=== PATIENT | male | born 1945 | race Caucasian/White ===

== ENCOUNTER 2018-07-04 21:22 | Inpatient (IN) | payer OTHER ==
[~2018-07-04] VITALS: Ht 177.8 cm; Wt 110.2 kg
[~2018-07-04 21:22] MED LIST: ALL DAY PAIN R220 MG PO; ASPIRIN EC81 M1 PO; CRANBERRY400 M2 PO; FLOMAX0.4 M1 PO; FLUDROCORTISON0.1 M1 PO; GLUCOPHAGE500 M1 PO; JANUVIA100 M1 PO; LEVEMIR100 UNIT/1 SC; NOVOLOG100 UNIT/2 SC; TYLENOL325 M1 PO
--- NOTE | 2018-07-04 21:44 | ED GENERAL ADULT ---
History of Present Illness General Chief Complaint: Altered Mental Status Stated Complaint: BIBA AMS Source: patient, old records, EMS, police Exam Limitations: Patient refusing to answer Vital Signs & Intake/Output Vital Signs & Intake/Output Vital Signs Date Time Temp Pulse Resp B/P B/P Pulse O2 O2 Flow FiO2 Mean Ox Delivery Rate 07/05 0100 99 18 95 Nasal 2.0L Cannula 07/04 2345 100.6 07/04 2336 100.6 98 18 136/63 93 Room Air 07/04 2201 103.8 106 22 149/69 92 Room Air 07/04 2200 102.8 ED Intake and Output 07/05 0000 07/04 1200 Intake Total 3000 Output Total 200 Balance 2800 Intake, IV 3000 Output, Urine 200 Patient 240 lb Weight Weight Estimated Measurement Method Allergies Coded Allergies: No Known Allergies (06/25/16) Reconcile Medications Acetaminophen (Tylenol) 325 MG TABLET 1 TAB PO Q8 PRN PAIN Aspirin (Ecotrin*) 81 MG TABLET.DR 1 TAB PO DAILY HEART HEALTH (Reported) Fludrocortisone Acetate 0.1 MG TABLET 1 TAB PO DAILY DIZZINESS ON STANDING Insulin Detemir (Levemir) 100 UNIT/1 ML VIAL 14 UNITS SC AT BEDTIME DM Metformin Hydochloride (Glucophage) 500 MG TABLET 1 TAB PO 1/2H B/BREAKF/ DINNER DM Sitagliptin Phosphate (Januvia) 100 MG TABLET 1 TAB PO DAILY DM Tamsulosin HCl (Flomax) 0.4 MG CAP.ER.24H 1 TAB PO DAILY URINARY RETENTION Triage Nurses Notes Reviewed? yes HPI: The patient lives in an apartment alone. His neighbor should her crash and found him as he fallen out of bed and was unable to get up. Upon EMS arrival patient was refusing to go to the emergency department. His apartment was found very disheveled and it was very hot inside. Patient was adamantly refusing to go so police were notified and the patient was brought in on a police paper for evaluation. Patient is not answering any questions only to state that he is here under duress and he does not want to be here. Patient is noted to be moving all 4 extremities and is following commands however will not answer any questions. (Bandar COLBERT,Gabe vAila) Past History Medical History Any Pertinent Medical History? see below for history Neurological: NONE EENT: NONE Cardiovascular: hypertension Respiratory: NONE Gastrointestinal: NONE Hepatic: NONE Renal: benign prost hyperplasia, DYSURIA Musculoskeletal: chronic back pain Psychiatric: NONE Endocrine: diabetes Blood Disorders: NONE Cancer(s): NONE INTRANET SUPPORT/Reproductive: NONE History of MRSA: No History of VRE: No History of CDIFF: No Pneumonia Vaccine: 06/25/16 Surgical History Surgical History: "EAR OPERATION A KID" Psychosocial History Who do you live with Patient/Self Services at Home None What is your primary language Belarusian Tobacco Use: Refused to answer Family History Hx Contributory? No (Bandar COLBERT,Gabe Avila) Review of Systems Review of Systems Constitutional: Reports: see HPI. (Bandar COLBERT,Gabe Avila) Physical Exam Physical Exam General Appearance: no apparent distress, awake, moderate distress Head: atraumatic Eyes: Bilateral: PERRL, EOMI. Ears, Nose, Throat: normal pharynx, hearing grossly normal Neck: normal inspection, supple Respiratory: normal breath sounds, chest non-tender, no respiratory distress, lungs clear Cardiovascular: regular rate/rhythm, normal peripheral pulses Gastrointestinal: normal bowel sounds, soft, non-tender, no organomegaly Back: normal inspection, normal range of motion Extremities: normal inspection, normal capillary refill, normal range of motion, no edema, pelvis stable Neurologic/Psych: no motor/sensory deficits, awake Skin: patient very filthy and covered in dirt. His skin is very dry and peeling. Core Measures ACS in differential dx? No CVA/TIA Diagnosis: No Sepsis Present: No Sepsis Focused Exam Completed? No (Badnar COLBERT,Gabe Avila) ED Sepsis Exam Date of Focused Sepsis Exam: 07/04/18 Time of Focused Sepsis Exam: 2232 Sepsis Cardiac Exam: Regular Rate/Rhythm Sepsis Resp Exam: CTA Sepsis Cap Refill Exam: <2 Sec Sepsis Peripheral Pulse Exam: Normal Sepsis Peripheral Pulse Location: Radial Sepsis Skin Color Exam: Normal for Ethnicity Skin Temp/Moisture Exam: Warm/Dry (Bandar COLBERT,Gabe Avila) Progress Differential Diagnoses I considered the following diagnoses in my evaluation of the patient: [ Electrolyte abnormality, sepsis, CVA, rhabdo, UTI] Plan of Care: Orders Procedure Date/time Status Clear Liquid Diet 07/05 B Active Patient Data 07/05 106 Active Saline Lock 07/05 103 Active Misc Message 07/05 103 Active ED Holding Orders 07/05 103 Active Admit to inpatient 07/05 103 Active Vital Signs 07/05 103 Active Code Status 07/05 103 Active Straight Cath 07/04 2149 Active Add-on Test (ER Only) 07/04 2148 Active Telemetry/Varnisher Plasticoater 07/04 2144 Active CULTURE,URINE 07/04 2144 Active BLOOD CULTURE 07/04 2144 Active URINALYSIS 07/04 2144 Complete TROPONIN LEVEL 07/04 2144 Complete LACTIC ACID 07/04 2144 Complete COMPREHENSIVE METABOLIC PANEL 07/04 2144 Complete CREATINE PHOSPHOKINASE 07/04 2144 Complete CBC WITHOUT DIFFERENTIAL 07/04 2144 Complete EKG 07/04 2144 Active Laboratory Tests 07/05/18 0044: Lactic Acid Cancelled 07/04/18 2315: Urine Color YEL, Urine Clarity HAZY H, Urine pH 6.0, Ur Specific [place] 1.025, Urine Protein 100 H, Urine Ketones NEG, Urine Nitrite POS H, Urine Bilirubin NEG, Urine Urobilinogen 0.2, Ur Leukocyte Esterase SMALL H, Ur Microscopic SEDIMENT EXAMINED, Urine RBC FEW H, Urine WBC 10-15 H, Ur Epithelial Cells RARE, Urine Bacteria FEW H, Urine Hemoglobin LARGE H, Urine Glucose NEG 07/04/18 2243: Anion Gap 11, Estimated GFR 43 L, BUN/Creatinine Ratio 27.5 H, Glucose 220 H, Lactic Acid 1.6, Calcium 8.8, Total Bilirubin 0.7, AST 23, ALT 23, Alkaline Phosphatase 118, Creatine Kinase 277 H, Troponin I 0.08, Total Protein 7.1, Albumin 3.4 L, Globulin 3.7, Albumin/Globulin Ratio 0.9 L, CBC w Diff MAN DIFF ORDERED, RBC 4.23 L, MCV 82.5, MCH 27.8, MCHC 33.7, RDW 15.7 H, MPV 9.4, Gran % 95.3 H, Lymphocytes % 1.6 L, Monocytes % 2.9, Eosinophils % 0.2, Basophils % 0, Absolute Granulocytes 22.1 H, Segmented Neutrophils 82 H, Band Neutrophils 6 H, Absolute Lymphocytes 0.4 L, Lymphocytes 4 L, Monocytes 8, Absolute Monocytes 0.7 H, Absolute Eosinophils 0, Absolute Basophils 0, Platelet Estimate ADEQUATE, Normocytic RBCs VERIFIED, Normochromic RBCs VERIFIED, Anisocytosis 1+ Microbiology 07/043 BLOOD: Blood Culture - RECD 07/04 2315 URINE ROUT: Urine Culture - RECD 07/04 2310 BLOOD: Blood Culture - RECD Diagnostic Imaging: Viewed by Me: Radiology Read, CT Scan. Discussed w/RAD: Radiology Read, CT Scan. Initial ED EKG: PENDING Rhythm Strip: sinus tachycardia Hand-Off Endorsed To: Jamison Powell MD Endorsed Time: 2299 Pending: CT, labs, Xray (Bandar COLBERT,Gabe Avila) Radiology Impression: PATIENT: JOSHUA ARTEAGA JR PRESENT AGE: 73 PATIENT ACCOUNT NO: [id number] : 47 LOCATION: [facility] ORDERING PHYSICIAN: Gabe Portillo MD SERVICE DATE: 07/04/18 EXAM TYPE: CAT - CT CERV SPINE WO IV CONTRAST; CT HEAD WO IV CONTRAST EXAMINATION: CT HEAD WITHOUT CONTRAST CT CERVICAL SPINE WITHOUT CONTRAST CLINICAL INFORMATION: Trauma. COMPARISON: None. TECHNIQUE: Imaging was performed from the skull base to vertex without intravenous administration of contrast. In addition, helical noncontrast CT imaging was acquired through the cervical spine and source images were reviewed along with axial reconstructions and sagittal and coronal MPRs. DLP: 969.7 mGy-cm FINDINGS: HEAD: No intracranial mass, hemorrhage, or midline shift is visualized. There is atrophy with prominence of the ventricles and the sulci and hypodensity of the periventricular white matter due to chronic small vessel ischemic disease. There is vascular calcifications of the internal carotid arteries bilaterally. No extra-axial collections are identified. There is sinus mucosal opacity filling the right frontal sinus. The mastoid air cells are normally aerated. CERVICAL SPINE: There is no evidence of acute cervical spine fracture. Vertebral bodies remain normal in height. Cervical vertebrae have normal alignment. There is multilevel degenerative spondylosis of the cervical spine with disc height narrowing and endplate spurs and facet joint arthrosis No pre- or paravertebral soft tissue abnormality is identified. Limited assessment of the lung apices is unremarkable. IMPRESSION: 1. No acute intracranial pathology. 2. No CT evidence of acute cervical spine fracture or traumatic subluxation DICTATED BY: Edgardo Sams MD DATE/TIME DICTATED:07/04/182240 INDIGO MIXER:DESIREE DATE/TIME TRANSCRIBED:07/04/182240 CONFIDENTIAL, DO NOT COPY WITHOUT APPROPRIATE AUTHORIZATION. <Electronically signed in Other Vendor System> SIGNED BY: Edgardo Sams MD 07/04/18 CXR Impression: PATIENT: JOSHUA ARTEAGA JR PRESENT AGE: 73 PATIENT ACCOUNT NO: [id number] : 47 LOCATION: [facility] ORDERING PHYSICIAN: Gabe Portillo MD SERVICE DATE: 07/04/18 EXAM TYPE: RAD - XRY- PORTABLE CHEST XRAY EXAMINATION: XR PORTABLE CHEST CLINICAL INFORMATION: Fever. COMPARISON: Chest x-ray 06/25/2016 TECHNIQUE: Portable frontal view of the chest was obtained. 10:17 PM FINDINGS: The left costophrenic angle is excluded from the image. Lung volume is low. This causes accentuation of the bronchovascular markings. Allowing for the low inspiratory effort there is no significant pulmonary vascular congestion. The lungs are clear. There is no focal consolidation. There is degenerative spurring of the inferior humeral head and glenoid of the right shoulder. There is degenerative spondylosis of the spine with multilevel endplate spurring of the vertebrae. IMPRESSION: No acute abnormality. DICTATED BY: Edgardo Sams MD DATE/TIME DICTATED:07/04/182302 INDIGO MIXER:DESIREE DATE/TIME TRANSCRIBED:07/04/182302 CONFIDENTIAL, DO NOT COPY WITHOUT APPROPRIATE AUTHORIZATION. <Electronically signed in Other Vendor System> SIGNED BY: Edgardo Sams MD 07/04/182307 (Carlos COLBERT,Jamison Almanza) Departure Departure Disposition: STILL A PATIENT Condition: Stable Referrals: Patient Has No Primary Care Dr (PCP/Family) Departure Forms: Customer Survey General Discharge Information (Bandar COLBERT,Gabe Avila) Departure Clinical Impression Primary Impression: Fever Secondary Impressions: Acute renal failure, Sepsis, UTI (urinary tract infection ) Comments pt signed out to me, dr. powell, 07/04/18, 11pm Admission Note Spoke With: Pacheco Almaguer MD Documentation of Exam: Documentation of any treatments & extenuating circumstances including Concerns Regarding Discharge (functional status, medication knowledge or non-compliance, living conditions, etc.) that warrant an admission rather than observation: pt with sepsis of urologic origin, with acute renal failure, likely of pre-renal etiology. pt merits iv fluids, iv abx, supportive care. (Carols COLBERT,Jamison Almanza) Critical Care Note Critical Care Note Critical Care Time: non-applicable (Bandar COLBERT,Gabe Avila)
--- NOTE | 2018-07-04 22:49 | CT SCAN REPORT ---
EXAMINATION: CT HEAD WITHOUT CONTRAST CT CERVICAL SPINE WITHOUT CONTRAST CLINICAL INFORMATION: Trauma. COMPARISON: None. TECHNIQUE: Imaging was performed from the skull base to vertex without intravenous administration of contrast. In addition, helical noncontrast CT imaging was acquired through the cervical spine and source images were reviewed along with axial reconstructions and sagittal and coronal MPRs. DLP: 969.7 mGy-cm FINDINGS: HEAD: No intracranial mass, hemorrhage, or midline shift is visualized. There is atrophy with prominence of the ventricles and the sulci and hypodensity of the periventricular white matter due to chronic small vessel ischemic disease. There is vascular calcifications of the internal carotid arteries bilaterally. No extra-axial collections are identified. There is sinus mucosal opacity filling the right frontal sinus. The mastoid air cells are normally aerated. CERVICAL SPINE: There is no evidence of acute cervical spine fracture. Vertebral bodies remain normal in height. Cervical vertebrae have normal alignment. There is multilevel degenerative spondylosis of the cervical spine with disc height narrowing and endplate spurs and facet joint arthrosis No pre- or paravertebral soft tissue abnormality is identified. Limited assessment of the lung apices is unremarkable. IMPRESSION: 1. No acute intracranial pathology. 2. No CT evidence of acute cervical spine fracture or traumatic subluxation
[2018-07-04 22:57] LABS: ABSOLUTE BASOPHIL COUNT 0 /CUMM (0.0-0.2); ABSOLUTE EOSINOPHIL COUNT 0 /CUMM (0.0-0.7); ABSOLUTE GRANULOCYTE CT 22.1 /CUMM (1.4-6.5); ABSOLUTE LYMPH COUNT 0.4 /CUMM (1.2-3.4); ABSOLUTE MONOCYTE COUNT 0.7 /CUMM (0.10-0.60); BASOPHIL % 0 % (0.0-2.0); EOSINOPHIL % 0.2 % (0-5); GRANULOCYTE % 95.3 % (42.2-75.2); HEMATOCRIT 34.9 % (42-52); MEAN CORPUSCULAR HGB 27.8 PG (27.0-31.0); MEAN CORPUSCULAR HGB CONC 33.7 G/DL (33.0-37.0); MEAN CORPUSCULAR VOLUME 82.5 FL (80.0-94.0); MEAN PLATELET VOLUME 9.4 FL (7.4-10.4); PLATELET COUNT 238 /CUMM (130-400); RBC DISTRIBUTION WIDTH 15.7 % (11.5-14.5); RED BLOOD CELL CT 4.23 /CUMM (4.70-6.10); WHITE BLOOD CELL COUNT 23.2 /CUMM (4.8-10.8)
--- NOTE | 2018-07-04 23:08 | RADIOLOGY REPORT ---
EXAMINATION: XR PORTABLE CHEST CLINICAL INFORMATION: Fever. COMPARISON: Chest x-ray 06/25/2016 TECHNIQUE: Portable frontal view of the chest was obtained. 10:17 PM FINDINGS: The left costophrenic angle is excluded from the image. Lung volume is low. This causes accentuation of the bronchovascular markings. Allowing for the low inspiratory effort there is no significant pulmonary vascular congestion. The lungs are clear. There is no focal consolidation. There is degenerative spurring of the inferior humeral head and glenoid of the right shoulder. There is degenerative spondylosis of the spine with multilevel endplate spurring of the vertebrae. IMPRESSION: No acute abnormality.
--- NOTE | 2018-07-05 01:21 | History & Physical ---
Yohana Villagomez 07/05/18 0120: General Information and HPI MD Statement: I have seen and personally examined JOSHUA ARTEAGA Michael CARVAJAL and documented this H&P. The patient is a 73 year old M who presented with a patient stated chief complaint of []. Source of Information: patient, EMS, police Exam Limitations: no limitations, irritable History of Present Illness: Patient is a 73-year-old male with a past medical history significant for diabetes mellitus type 2, BPH, insomnia, was brought in by ambulance to the ER for evaluation of altered mental status and a fall. Patient reports doing well as per his baseline functional status until yesterday when he felt very tired all day. Also reports chills and shivers and an episode of vomiting in the morning. he was asleep most of the day. He woke up this evening when he felt no strength at all and felt very weak. He tried to get up from the bed and does not remember anything after that. His neighbor reports that he heard a loud tired and presumed that the patient had fallen. He called the 911 and the patient was brought to the emergency department. The patient did not want to stay in the ED and said that he was fine and wanted to go home. Patient also reports increased urinary frequency for the past 1 month. He denies use of any of his medications. He denies dysuria, hematuria, fever, chills, chest pain, shortness of breath, abdominal pain, nausea, headaches, myalgias, arthralgias. Allergies/Medications Allergies: Coded Allergies: No Known Allergies (06/25/16) Home Med list Acetaminophen (Tylenol) 325 MG TABLET 1 TAB PO Q8 PRN PAIN Aspirin (Ecotrin*) 81 MG TABLET.DR 1 TAB PO DAILY HEART HEALTH (Reported) Fludrocortisone Acetate 0.1 MG TABLET 1 TAB PO DAILY DIZZINESS ON STANDING Insulin Detemir (Levemir) 100 UNIT/1 ML VIAL 14 UNITS SC AT BEDTIME DM Metformin Hydochloride (Glucophage) 500 MG TABLET 1 TAB PO 1/2H B/BREAKF/ DINNER DM Sitagliptin Phosphate (Januvia) 100 MG TABLET 1 TAB PO DAILY DM Tamsulosin HCl (Flomax) 0.4 MG CAP.ER.24H 1 TAB PO DAILY URINARY RETENTION Past History Travel History Traveled to [place] past 21 day No Medical History Neurological: NONE EENT: NONE Cardiovascular: hypertension Respiratory: NONE Gastrointestinal: NONE Hepatic: NONE Renal: benign prost hyperplasia, DYSURIA Musculoskeletal: chronic back pain Psychiatric: NONE Endocrine: diabetes Blood Disorders: NONE Cancer(s): NONE 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 Home Who Do You Live With? self Services at Home: None ETOH Use: denies use Illicit Drug Use: denies illicit drug use Functional Ability ADLs Independent: dressing, eating, toileting, bathing. Review of Systems Review of Systems Constitutional: Reports: see HPI. EENTM: Reports: no symptoms. Cardiovascular: Reports: no symptoms. Respiratory: Reports: no symptoms. GI: Reports: see HPI. Genitourinary: Reports: see HPI. Musculoskeletal: Reports: no symptoms. Skin: Reports: no symptoms. Neurological/Psychological: Reports: no symptoms. Hematologic/Endocrine: Reports: no symptoms. Immunologic/Allergic: Reports: no symptoms. All Other Systems: Reviewed and Negative Exam & Diagnostic Data Last 24 Hrs of Vital Signs/I&O Vital Signs Date Time Temp Pulse Resp B/P B/P Pulse O2 O2 Flow FiO2 Mean Ox Delivery Rate 07/05 0315 97.9 84 20 152/70 99 Nasal 2.0L Cannula 07/05 0132 94 20 149/67 98 Nasal 2.0L Cannula 07/05 0100 99 18 95 Nasal 2.0L Cannula 07/04 2345 100.6 07/04 2336 100.6 98 18 136/63 93 Room Air 07/04 2201 103.8 106 22 149/69 92 Room Air 07/04 2200 102.8 Intake & Output 07/05 0800 07/05 0000 07/04 1600 Intake Total 2300 3000 Output Total 200 Balance 2300 2800 Intake, IV 2300 3000 Output, Urine 200 Patient 240 lb Weight Weight Estimated Measurement Method Physical Exam General Appearance Alert, Oriented X3, No Acute Distress Skin No Rashes, No Breakdown, No Significant Lesion, scratch li all over the body Skin Temp/Moisture Exam: Cool/Dry Sepsis Skin Exam (color): Normal for Ethnicity HEENT Atraumatic, Mucous Membr. moist/pink Neck Supple, No JVD, No thryomegaly, +2 Carotid Pulse wo Bruit Cardiovascular Regular Rate, Normal S1, Normal S2, No Murmurs Lungs Clear to Auscultation, Normal Air Movement Abdomen Normal Bowel Sounds, Soft, No Tenderness, No Hepatospenomegaly, No Masses Neurological Normal Speech, Strength at 5/5 X4 Ext, Normal Tone, Sensation Intact, Cranial Nerves 3-12 NL Extremities b/l pedal edema Vascular Normal Pulses, Pulses Symmetrical Assessment/Plan Assessment: Patient is a 73-year-old male with a past medical history significant for diabetes mellitus type 2, BPH, insomnia, was brought in by ambulance to the ER for evaluation of a altered mental status & fall. Vitals on admission:T-max 103.8, tachycardia 106, respiratory 22, blood pressure 149/96, saturating at 95 on 2 L Pertinent labs:WBC 23 with bandemia 6, hemoglobin 11 and hematocrit 34, platelets 238 Sodium 135, potassium 4, BUN 44 and creatinine 1.6, Blood sugar 220, CK 227, Lactic acid 1.6 Chest x-ray: no acute cardiopulmonary findings Head CT:1. No acute intracranial pathology. 2. No CT evidence of acute cervical spine fracture or traumatic subluxation Problems: 1.sepsis of urological origin 2.acute kidney injury 3.Elevated creatine kinase 4.Generalized weakness 5.diabetes mellitus type 2 6.BPH Assessment and plan: 1.sepsis of urological origin Patient presented to us with weakness, tiredness, altered mental status leading to a fall. His vitals were a T-max of 103.8 and tachycardia. Leukocytosis and bandemia. His urine showed WBC, esterase, nitrates, bacteria. He fulfills SIRS criteria for sepsis. -Continue IV hydration -Check vitals every shift -Monitor fever -Continue IV ceftriaxone -Follow up with blood cultures 2 and urine cultures -Maintain oxygen saturation above 94% 2.acute kidney injury: Likely due to dehydration and infection. His creatinine today was 1.6. Previously was 0.8. -Continue IV hydration -Monitor serum creatinine levels -Avoid nephrotoxic drugs including NSAIDs 3.Elevated creatine kinase -Creatine kinase level was 227 -Continue gentle hydration which will help with the creatinine kinase level 4.Generalized weakness -Follow up with thyroid function tests, vitamin D, vitamin B12, folate, iron studies -Obtain PT consult 5.diabetes mellitus type 2 -Continue Accu-Cheks -Levemir 14 units at bedtime -NovoLog sliding scale 6.BPH -Continue Flomax -DVT prophylaxis:subcu heparin 5000 units -Diet: Regular diet -CODE STATUS: Full code As Ranked By This Provider Problem List: 1. UTI (urinary tract infection) 2. Diabetes mellitus type 2 in obese 3. Sepsis 4. Acute renal failure Core Measures/Misc (07/24) Acute Coronary Syndrome ACS Diagnosis: No Congestive Heart Failure Congestive Heart Failure Diagnosis No Cerebrovascular Accident CVA/TIA Diagnosis: No VTE (View Protocol) VTE Risk Factors Age>40 No Mechanical VTE Prophylaxis d/t N/A MechProphylax Ordered No VTE Pharm Prophylaxis d/t NA PharmProphylax ordered Sepsis (View protocol) Sepsis Present: Yes If YES complete Sepsis Event Note If YES complete Sepsis Event Note Pacheco Almaguer MD 07/05/18 0135: Core Measures/Misc (07/24) Sepsis (View protocol) If YES complete Sepsis Event Note If YES complete Sepsis Event Note Attending MD Review Statement Attending Statement Attending MD Statement: examined this patient, discuss w/resident/PA/BOILER TESTING TECHNICIAN, agreed w/resident/PA/BOILER TESTING TECHNICIAN, reviewed EMR data (avail) Attending Assessment/Plan: 73M PMH T2DM was found by neighbors down in his house, brought in by EMS after patient was unable to walk or move. He was responsive and alert, but became more lethargic and weak, and was stuck between the bed and the wall, unable to get out. He refused to come to ER and was papered. Patient refuses to talk to me or answer any questions at this time. He appears diaphoretic and severely dehydrated. He is moving all limbs independently and has a normal neurological exam. Tmax 103.8, WBC 23, creatinine 1.3, CPK normal. UA suggestive of possible UTI. Unclear if labs are a result of sepsis or hyperthermia, however will cover for urological infection. Plan: IV hydration, Ceftriaxone, cultures, trend renal function, psych and social work, PT eval. Sam Maldonado 07/05/18 0252: Core Measures/Misc (07/24) Sepsis (View protocol) If YES complete Sepsis Event Note If YES complete Sepsis Event Note Resident Review Statement Resident Statement: examined this patient, discussed with internal combustion engineer, agreed with internal combustion engineer, discussed with family, reviewed EMR data (avail), discussed with nursing , discussed with case mgmt, reviewed images, amended to note Other Findings: This is a 73-year-old male with past medical history significant for type 2 diabetes mellitus, BPH, orthostatic hypotension, chronic back pain, was brought in via EMS to the emergency room with chief complaint of altered mental status. Patient was found by neighbors down in his house, EMS was called. Patient was unable to walk or move by the time EMS reached. He is alert, awake however lethargic and weak and he was stuck between bed and the wall, unable to get out. He refused to come to the emergency room. Later POLICE was called and he was brought into the emergency room. He reports that he has been having extreme weakness for last 2 days. He has been living alone at his home. Denies alcohol abuse, smoking, illicit drug abuse. He offers no complaints. He reports that he has BPH, he urinates almost 20 times a day. But however he stopped taking all his medications recently. He has known history of diabetes, used to follow-up with Dr. Bernard however he stopped taking Levemir and insulin at home. On review of systems he denied any nausea, vomiting, abdominal pain, change in bowel habits. Denied any constipation, diarrhea. Reports increased urinary frequency. Denies any dysuria, urgency, lower abdominal pain. He denied any chest pain, palpitations, short of breath, cough. He was last admitted to [facility], found to have orthostatic hypotension, discharged on Florinef Vitals T-max 103.8, tachycardia 106, respiratory 22, blood pressure 149/96, saturating at 95 on 2 L Labs WBC 23 with bandemia 6, hemoglobin 11 and hematocrit 34, platelets 238 Sodium 135, potassium 4, BUN 44 and creatinine 1.6 Blood sugar 220 CK 227 Lactic acid 1.6 Chest x-ray no acute cardiopulmonary findings Head CT 1. No acute intracranial pathology. 2. No CT evidence of acute cervical spine fracture or traumatic subluxation - 1. Sepsis secondary to UTI Patient presented with lethargy, weakness. He was found to have T-max 103.8, tachycardia, leukocytosis and bandemia. Urinalysis showed nitrates, esterase, bacteria, WBC. He will be admitted to [facility] for sepsis secondary to UTI versus hyperthermia. * Admit to [facility] * Monitor vitals every shift * Maintain oxygen saturations greater than 90 * Monitor for fever, leukocytosis * Follow-up blood cultures 2 * Follow-up urine cultures * Continue IV ceftriaxone * Continue IV fluids Acute kidney injury Creatinine 1.6 at the time of admission. His baseline creatinine was 0.8 most likely secondary to dehydration and hyperthermia * Adequate hydration * Recheck creatinine in the a.m. * Avoid nephrotoxic agents Diabetes mellitus Patient has chronic history of type 2 diabetes mellitus. He is supposed to take Levemir and oral hypoglycemic agents. However he stopped taking all his medications. He stopped following up Dr. Anand. * Accu-Cheks * Levemir 14 units at bedtime * NovoLog sliding scale Mild elevation of creatinine kinase * Provide gentle hydration Generalized weakness * PT consult * Follow-up thyroid function tests * Follow-up vitamin D * Follow-up B12 and folate * Follow-up iron studies Orthostatic hypotension continue Florinef 0.1 mg daily BPH continue Flomax 0.4 mg daily DVT prophylaxis subcu heparin Regular diet Full code Pain pathway ordered
[2018-07-05 08:00] VITALS: BP 152/67
[2018-07-05 08:22] LABS: ABSOLUTE BASOPHIL COUNT 0 /CUMM (0.0-0.2); ABSOLUTE EOSINOPHIL COUNT 0 /CUMM (0.0-0.7); ABSOLUTE GRANULOCYTE CT 19.4 /CUMM (1.4-6.5); ABSOLUTE LYMPH COUNT 0.5 /CUMM (1.2-3.4); BASOPHIL % 0.1 % (0.0-2.0); EOSINOPHIL % 0.1 % (0-5); HEMATOCRIT 32.4 % (42-52); MEAN CORPUSCULAR HGB CONC 34.3 G/DL (33.0-37.0); MEAN CORPUSCULAR VOLUME 81.4 FL (80.0-94.0); MEAN PLATELET VOLUME 9.7 FL (7.4-10.4); PLATELET COUNT 204 /CUMM (130-400); RBC DISTRIBUTION WIDTH 15.5 % (11.5-14.5); RED BLOOD CELL CT 3.98 /CUMM (4.70-6.10)
[2018-07-05 09:02] LABS: GRANULOCYTE % 92.6 % (42.2-75.2)
--- NOTE | 2018-07-05 11:23 | PN- Att Addend ---
Attending Addendum Attending Brief Note Laboratory Tests 07/05/18 0642: Anion Gap 7, Estimated GFR 46 L, BUN/Creatinine Ratio 24.0, Hemoglobin A1c Pending, Creatine Kinase 977 H, Troponin I 1.08 *H, CBC w Diff NO MAN DIFF REQ, RBC 3.98 L, MCV 81.4, MCH 28.0, MCHC 34.3, RDW 15.5 H, MPV 9.7, Gran % 92.6 H , Lymphocytes % 2.5 L, Monocytes % 4.7, Eosinophils % 0.1, Basophils % 0.1, Absolute Granulocytes 19.4 H, Absolute Lymphocytes 0.5 L, Absolute Monocytes 1.0 H, Absolute Eosinophils 0, Absolute Basophils 0 07/05/18 0044: Lactic Acid Cancelled 07/04/18 2315: Urine Color YEL, Urine Clarity HAZY H, Urine pH 6.0, Ur Specific [place] 1.025, Urine Protein 100 H, Urine Ketones NEG, Urine Nitrite POS H, Urine Bilirubin NEG, Urine Urobilinogen 0.2, Ur Leukocyte Esterase SMALL H, Ur Microscopic SEDIMENT EXAMINED, Urine RBC FEW H, Urine WBC 10-15 H, Ur Epithelial Cells RARE, Urine Bacteria FEW H, Urine Hemoglobin LARGE H, Urine Glucose NEG 07/04/18 2243: Anion Gap 11, Estimated GFR 43 L, BUN/Creatinine Ratio 27.5 H, Glucose 220 H, Lactic Acid 1.6, Calcium 8.8, Iron 28 L, TIBC 265, Ferritin 95.6, Total Bilirubin 0.7, AST 23, ALT 23, Alkaline Phosphatase 118, Creatine Kinase 277 H, Troponin I 0.08, Total Protein 7.1, Albumin 3.4 L, Globulin 3.7, Albumin/ Globulin Ratio 0.9 L, Vitamin B12 306, 25-OH Vitamin D Total 9.1 L, Folate 4.2 , TSH 3.830, Thyroxine (T4) 6.5, CBC w Diff MAN DIFF ORDERED, RBC 4.23 L, MCV 82.5, MCH 27.8, MCHC 33.7, RDW 15.7 H, MPV 9.4, Gran % 95.3 H, Lymphocytes % 1.6 L, Monocytes % 2.9, Eosinophils % 0.2, Basophils % 0, Absolute Granulocytes 22.1 H, Segmented Neutrophils 82 H, Band Neutrophils 6 H, Absolute Lymphocytes 0.4 L, Lymphocytes 4 L, Monocytes 8, Absolute Monocytes 0.7 H, Absolute Eosinophils 0, Absolute Basophils 0, Platelet Estimate ADEQUATE, Normocytic RBCs VERIFIED, Normochromic RBCs VERIFIED, Anisocytosis 1+ Vital Signs Date Time Temp Pulse Resp B/P B/P Pulse O2 O2 Flow FiO2 Mean Ox Delivery Rate 07/05 1039 95 Room Air 07/05 0820 98.5 82 18 151/67 95 Room Air 07/05 0800 98.5 82 18 152/67 95 Room Air 07/05 0630 98.8 76 18 168/74 96 07/05 0315 97.9 84 20 152/70 99 Nasal 2.0L Cannula 07/05 0132 94 20 149/67 98 Nasal 2.0L Cannula 07/05 0100 99 18 95 Nasal 2.0L Cannula 07/04 2345 100.6 07/04 2336 100.6 98 18 136/63 93 Room Air 07/04 2201 103.8 106 22 149/69 92 Room Air 07/04 2200 102.8 73 yr old male who lives by himself and being admitted with sepsis secondary to UTI and also has postiive troponins. Talking to pt - he has not been taking any meds and has not seen a doctor for some time. He said he was told about some vascular problem in his legs about 2 years but given that he does not have insurance he did not pursue any treatment. Pt denies any smoking or alcohol history. he does have h/o DM and other medical problems like BPH but is not taking any meds. At one point of time he had issues with orthostatic hypotension and was put on florinef. Sepsis secondary to UTI- will cont to monitor his wbc and f;u on urine and blood cultures. pt doing ok for now and will cont with current abx- ceftriaxone. Positive troponins- pts second troponin came back positive at around 1, reviewed his EKG- shows LVH with repolarization abnormalities which is new compared to his previous ekg we have in our system. Likely Type 2 NM secondary to sepsis . Could have underlying CAD given his h/o DM and HTN and noncompliance with meds and given h/o vascular disease. YANET- cont with hydraion and recheck his BEP in am. d/w case planner in ER and pt apprantely is not maintaining his apartment and it was in bad condition per EMS and [facility]. d/w pt and family at bedside the care plan.
--- NOTE | 2018-07-05 15:50 | ULTRASOUND REPORT ---
EXAMINATION: US RETROPERITONEAL COMPLETE (RENAL) CLINICAL INFORMATION: UTI, urinary retention. Constantly feels the need to void but never able to fully empty. COMPARISON: CT abdomen and pelvis 06/25/2016. TECHNIQUE: Real-time imaging of the kidneys and bladder. FINDINGS: Limited evaluation due to patient's body habitus, bowel gas and patient compliance with the examination. RIGHT KIDNEY: 11.4 x 6.4 x 4.5 cm (SAG x AP x TRV). The kidney is normal in size, contour, and echogenicity. Renal cortical thickness is normal. No calculi or focal parenchymal lesions. No hydronephrosis. LEFT KIDNEY: 11.8 x 4.5 x 5.0 cm (SAG x AP x TRV). The kidney is normal in size, contour, and echogenicity. Renal cortical thickness is normal. No calculi or focal parenchymal lesions. No hydronephrosis. BLADDER: Well distended and normal. Right ureteral jet is demonstrated; left is not. The patient attempted to void just prior to the exam. Postvoid bladder volume is 660 mL. The prostate measures 4.8 x 4.2 x 4.6 cm. IMPRESSION: 1. Significant postvoid residual of 660 mL. 2. Unremarkable sonographic appearance of the kidneys.
--- NOTE | 2018-07-05 16:28 | Cons- Cardiology ---
General Information and HPI Consulting Request Date of Consult: 07/05/18 Requested By: Jammie Carrera MD History of Present Illness: The patient is a 73-year-old male with history of type 2 diabetes mellitus and BPH who is brought to the emergency department after being found on the floor of his home. The patient complained of significant fatigue and inability to get out of bed. He also complained of chills and episode of vomiting. His neighbor heard. He was found on the floor of his home lethargic and confused. He does not know how he came to be on the floor or how long he was on the floor. He has been noncompliant with his medications because he states that the medications do not make him feel better. He reports that he has had absolutely no chest discomfort. He denies any history of pain, tightness, or heaviness in the chest. He notes occasional mild shortness of breath, however he denies having that recently. He was noted to have a high fever on presentation, and was diagnosed with urinary tract infection. His troponin level increased from 0.08 on presentation to 1.08, and then to 6.02. He denies any history of heart disease, however he reports that he was told by Dr. Anand that he has vascular disease. When assessed by EMS, he refused to go to the emergency department and was brought in voluntarily. He states that he is willing to take medications in the hospital, however he does not plan to take any medications when he is discharged from the hospital. He states that he does not want any surgery or invasive procedures. Ceftriaxone has been initiated for urinary tract infection. Allergies/Medications Allergies: Coded Allergies: No Known Allergies (06/25/16) Home Med List: Acetaminophen (Tylenol) 325 MG TABLET 1 TAB PO Q8 PRN PAIN Aspirin (Ecotrin*) 81 MG TABLET.DR 1 TAB PO DAILY HEART HEALTH (Reported) Fludrocortisone Acetate 0.1 MG TABLET 1 TAB PO DAILY DIZZINESS ON STANDING Insulin Detemir (Levemir) 100 UNIT/1 ML VIAL 14 UNITS SC AT BEDTIME DM Metformin Hydochloride (Glucophage) 500 MG TABLET 1 TAB PO 1/2H B/BREAKF/ DINNER DM Sitagliptin Phosphate (Januvia) 100 MG TABLET 1 TAB PO DAILY DM Tamsulosin HCl (Flomax) 0.4 MG CAP.ER.24H 1 TAB PO DAILY URINARY RETENTION Current Medications: Current Medications Sig/Chuyita Start time Last Medication Dose Route Stop Time Status Admin Acetaminophen 650 MG Q6P PRN 07/05 0200 AC PO Acetaminophen 1,000 MG Q6P PRN 07/05 0200 AC IV Acetaminophen 0 .STK-MED ONE 07/04 2153 DC IV Acetaminophen 1,000 MG ONCE ONE 07/04 2145 DC 07/04 N/A 1 UNIT IV 07/04 215 2200 Aspirin Buffered 81 MG DAILY 07/05 0900 AC 07/05 PO 0946 Atorvastatin Calcium 40 MG 1700 07/05 1700 AC PO Ceftriaxone Sodium 1,000 MG Q24H 07/06 0100 AC IV Ceftriaxone Sodium 1,000 MG DAILY 07/05 09 CAN IV Ceftriaxone Sodium 0 .STK-MED ONE 07/05 0059 DC .ROUTE Ceftriaxone Sodium 1,000 MG ONCE ONE 07/05 0045 DC 07/05 IV 07/05 0046 0109 Cholecalciferol 6,000 IU DAILY 07/05 09 AC PO Ergocalciferol 50,000 IU ONCE A WEEK 07/05 1600 AC PO Fludrocortisone 100 MCG DAILY 07/05 09 DC 07/05 Acetate PO 0946 Heparin Sodium 5,000 UNIT Q8 07/05 0600 AC 07/05 (Porcine) SC 1359 Heparin Sodium 0 .STK-MED ONE 07/05 0400 DC (Porcine) .ROUTE Insulin Aspart 0 TIDAC 07/05 0200 AC 07/05 SC 08 Insulin Detemir 14 UNITS AT BEDTIME 07/05 2100 AC SC Sodium Chloride 1,000 ML Q13H 07/05 0200 AC 07/05 IV 07/06 0359 1431 Sodium Chloride 3,265.86 ML ONCE ONE 07/04 2145 DC 07/04 IV 07/04 214 2342 Tamsulosin HCl 0.4 MG DAILY 07/05 0900 AC 07/05 PO 0946 Review of Systems Review of Systems: No rash. No tremor. No melena. No orthopnea. All other systems were reviewed , and were noted to be negative. Past History Travel History Traveled to [place] past 21 day No Medical History Neurological: NONE EENT: NONE Cardiovascular: hypertension Respiratory: NONE Gastrointestinal: NONE Hepatic: NONE Renal: benign prost hyperplasia, DYSURIA Musculoskeletal: chronic back pain Psychiatric: NONE Endocrine: diabetes Blood Disorders: NONE Cancer(s): NONE [employer]IVER/Reproductive: NONE Surgical History Surgical History: "EAR OPERATION A KID" Family History Family History Reviewed? The patient denies any history of heart disease in his family. Psychosocial History Where Do You Live? Home Who Do You Live With? self Services at Home: None Smoking Status: Never Smoked ETOH Use: denies use Illicit Drug Use: denies illicit drug use Functional Ability ADLs Independent: dressing, eating, toileting, bathing. Exam & Diagnostic Data Vital Signs and I&O Vital Signs Date Time Temp Pulse Resp B/P B/P Pulse O2 O2 Flow FiO2 Mean Ox Delivery Rate 07/05 1039 95 Room Air 07/05 0820 98.5 82 18 151/67 95 Room Air 07/05 0800 98.5 82 18 152/67 95 Room Air 07/05 0630 98.8 76 18 168/74 96 07/05 0315 97.9 84 20 152/70 99 Nasal 2.0L Cannula 07/05 0132 94 20 149/67 98 Nasal 2.0L Cannula 07/05 0100 99 18 95 Nasal 2.0L Cannula 07/04 2345 100.6 07/04 2336 100.6 98 18 136/63 93 Room Air 07/04 2201 103.8 106 22 149/69 92 Room Air 07/04 2200 102.8 Intake & Output 07/05 1600 07/05 0800 07/05 0000 07/04 1600 07/04 0800 07/04 0000 Intake Total 560 2300 3000 Output Total 100 300 200 Balance 460 2000 2800 Intake, IV 500 2300 3000 Intake, Oral 60 Output, Urine 100 300 200 Patient 240 lb 240 lb Weight Weight Estimated Measurement Method Physical Exam: Gen: The patient is in no acute distress HEENT: Normal nose, ears, and oropharynx. Pupils equal bilaterally. Conjunctiva normal. Neck: Supple with no JVD, no masses, and no thyromegaly Lungs: Clear to auscultation with normal respiratory effort Heart: RRR, S1, S2, 2/6 systolic murmur. 1+ peripheral edema, 1+ pulses in the lower extremities bilaterally Abdomen: Soft, nontender, no masses. No hepatomegaly. No splenomegaly Extremities: No clubbing or cyanosis. Normal muscle strength in the upper and lower extremities Skin: Normal skin turgor with no skin ulcers or lesions noted. Neuro: Cranial nerves intact. Sensation intact Psych: Alert and oriented x 3 with appropriate affect Labs/Bryan Results: Laboratory Tests 07/05 07/05 07/05 1451 0642 0044 Chemistry Sodium (137 - 145 mmol/L) 138 Potassium (3.5 - 5.1 mmol/L) 4.1 Chloride (98 - 107 mmol/L) 110 H Carbon Dioxide (22 - 30 mmol/L) 21 L Anion Gap (5 - 16) 7 BUN (9 - 20 mg/dL) 36 H Creatinine (0.7 - 1.2 mg/dL) 1.5 H Estimated GFR (>60 ml/min) 46 L BUN/Creatinine Ratio (7 - 25 %) 24.0 Hemoglobin A1c (4.2 - 5.8 %) 7.8 H Lactic Acid Cancelled Creatine Kinase (55 - 170 U/L) 977 H Troponin I (<0.11 ng/ml) 6.02 *H 1.08 *H Triglycerides (<150 mg/dL) 108 Cholesterol (< 200 MG/DL) 161 LDL Cholesterol, Calc (65 - 129 mg/dL) 107 HDL Cholesterol (40 - 60 mg/dL) 33 L Cholesterol/HDL Ratio (0.00 - 4.88 %) 5 H Hematology CBC w Diff NO MAN DIFF REQ WBC (4.8 - 10.8 /CUMM) 21.0 H RBC (4.70 - 6.10 /CUMM) 3.98 L Hgb (14.0 - 18.0 G/DL) 11.1 L Hct (42 - 52 %) 32.4 L MCV (80.0 - 94.0 FL) 81.4 MCH (27.0 - 31.0 PG) 28.0 MCHC (33.0 - 37.0 G/DL) 34.3 RDW (11.5 - 14.5 %) 15.5 H Plt Count (130 - 400 /CUMM) 204 MPV (7.4 - 10.4 FL) 9.7 Gran % (42.2 - 75.2 %) 92.6 H Lymphocytes % (20.5 - 51.1 %) 2.5 L Monocytes % (1.7 - 9.3 %) 4.7 Eosinophils % (0 - 5 %) 0.1 Basophils % (0.0 - 2.0 %) 0.1 Absolute Granulocytes (1.4 - 6.5 /CUMM) 19.4 H Absolute Lymphocytes (1.2 - 3.4 /CUMM) 0.5 L Absolute Monocytes (0.10 - 0.60 /CUMM) 1.0 H Absolute Eosinophils (0.0 - 0.7 /CUMM) 0 Absolute Basophils (0.0 - 0.2 /CUMM) 0 07/04 07/04 5329 4273 Chemistry Sodium (137 - 145 mmol/L) 135 L Potassium (3.5 - 5.1 mmol/L) 4.0 Chloride (98 - 107 mmol/L) 107 Carbon Dioxide (22 - 30 mmol/L) 17 L Anion Gap (5 - 16) 11 BUN (9 - 20 mg/dL) 44 H Creatinine (0.7 - 1.2 mg/dL) 1.6 H Estimated GFR (>60 ml/min) 43 L BUN/Creatinine Ratio (7 - 25 %) 27.5 H Glucose (65 - 99 mg/dL) 220 H Lactic Acid (0.7 - 2.1 mmol/L) 1.6 Calcium (8.4 - 10.2 mg/dL) 8.8 Iron (49 - 181 ug/dL) 28 L TIBC (261 - 462 ug/dL) 265 Ferritin (17.9 - 464 ng/mL) 95.6 Total Bilirubin (0.2 - 1.3 mg/dL) 0.7 AST (17 - 59 U/L) 23 ALT (21 - 72 U/L) 23 Alkaline Phosphatase (< 127 U/L) 118 Creatine Kinase (55 - 170 U/L) 277 H Troponin I (<0.11 ng/ml) 0.08 Total Protein (6.3 - 8.2 g/dL) 7.1 Albumin (3.5 - 5.0 g/dL) 3.4 L Globulin (1.9 - 4.2 gm/dL) 3.7 Albumin/Globulin Ratio (1.1 - 2.2 %) 0.9 L Vitamin B12 (239 - 931 pg/mL) 306 25-OH Vitamin D Total (30 - 100 ng/ml) 9.1 L Folate (2.76 - 20.0 ng/mL) 4.2 TSH (0.270 - 4.200 uIU/mL) 3.830 Thyroxine (T4) (4.5 - 10.9 ug/dL) 6.5 Hematology CBC w Diff MAN DIFF ORDERED WBC (4.8 - 10.8 /CUMM) 23.2 H RBC (4.70 - 6.10 /CUMM) 4.23 L Hgb (14.0 - 18.0 G/DL) 11.8 L Hct (42 - 52 %) 34.9 L MCV (80.0 - 94.0 FL) 82.5 MCH (27.0 - 31.0 PG) 27.8 MCHC (33.0 - 37.0 G/DL) 33.7 RDW (11.5 - 14.5 %) 15.7 H Plt Count (130 - 400 /CUMM) 238 MPV (7.4 - 10.4 FL) 9.4 Gran % (42.2 - 75.2 %) 95.3 H Lymphocytes % (20.5 - 51.1 %) 1.6 L Monocytes % (1.7 - 9.3 %) 2.9 Eosinophils % (0 - 5 %) 0.2 Basophils % (0.0 - 2.0 %) 0 Absolute Granulocytes (1.4 - 6.5 /CUMM) 22.1 H Segmented Neutrophils (42.2 - 75.2 %) 82 H Band Neutrophils (0.0 - 5.0 %) 6 H Absolute Lymphocytes (1.2 - 3.4 /CUMM) 0.4 L Lymphocytes (20.5 - 51.1 %) 4 L Monocytes (1.7 - 9.3 %) 8 Absolute Monocytes (0.10 - 0.60 /CUMM) 0.7 H Absolute Eosinophils (0.0 - 0.7 /CUMM) 0 Absolute Basophils (0.0 - 0.2 /CUMM) 0 Platelet Estimate (ADEQUATE) ADEQUATE Normocytic RBCs VERIFIED Normochromic RBCs VERIFIED Anisocytosis 1+ Urines Urine Color (YEL,AMB,STR) YEL Urine Clarity (CLEAR) HAZY H Urine pH (5.0 - 8.0) 6.0 Ur Specific [place] (1.001 - 1.035) 1.025 Urine Protein (NEG,<30 MG/DL) 100 H Urine Ketones (NEG) NEG Urine Nitrite (NEG) POS H Urine Bilirubin (NEG) NEG Urine Urobilinogen (0.1 - 1.0 EU/dl) 0.2 Ur Leukocyte Esterase (NEG) SMALL H Ur Microscopic SEDIMENT EXAMINED Urine RBC (0 - 5 /HPF) FEW H Urine WBC (0 - 2 /HPF) 10-15 H Ur Epithelial Cells (NONE,FEW) RARE Urine Bacteria (NEG/NONE) FEW H Urine Hemoglobin (NEG) LARGE H Urine Glucose (N MG/DL) NEG Diagnostic Data EKG Results EKG tracings independently reviewed, and reveals normal sinus rhythm at 77, left ventricular hypertrophy, nonspecific ST abnormal CXR Results Chest x-ray: Negative Other Results Head CT: 1. No acute intracranial pathology. 2. No CT evidence of acute cervical spine fracture or traumatic subluxation Assessment/Plan Assessment/Plan The patient is a 73-year-old male with history of type 2 diabetes mellitus, BPH, and noncompliance with medications. He was found down at his home with no memory of how he came to be on the floor or how long he was there. He is found to have urinary tract infection and is admitted for further management. He has had no chest discomfort or other definite cardiac symptoms. He is noted to have a significant troponin elevation, which likely represents a type II myocardial infarction, exacerbated by sepsis and possible rhabdomyolysis. Recommendations: * Monitor on telemetry * IV antibiotics as per the medical team * Agree with IV fluid * Aspirin 325 mg p.o. 1 followed by 81 mg daily * Plavix 300 mg p.o. 1 followed by 75 mg daily * IV heparin per protocol * Echocardiogram * Would start metoprolol 12.5 mg p.o. twice daily for treatment of the elevated blood pressure and type II myocardial infarction * At this time the patient states that he does not wish to take medications after discharge and he does not wish to have any invasive procedures, which would preclude cardiac catheterization. We will continue to discuss options with the patient, and and will consider possible cardiac catheterization prior to discharge if the patient becomes agreeable. Consult Acknowledgment - Thank you for your consult request.
[2018-07-05 17:30] VITALS: BP 132/62
[2018-07-05 23:22] VITALS: BP 158/70
[2018-07-06 02:53] LABS: PTT 34 SEC (25-37)
--- NOTE | 2018-07-06 03:32 | Event Note ---
Event Note Event Note: Situation : Positive troponin Background - We were singed out by veterinary surgeon team to follow troponin. First two set were noted to be 0.08>>1.08>>6.02>>the next Troponin was noted to be 8.[address] depression in leads V3 to V5. Assessment : Patient didn't have any symptoms, he was sitting comfortably in bed. call center coordinator Frame Table Operator Dr ye was informed. The patient is already on heparin, ASA and plavix. Plan He advised to continue current management and continue to follow serial troponins until they peak, if next troponin is significantly high, we will call him again. Of note, patient has been denying any kind of invasive procedures and denies any cardiac cath if indicated. ADDENDUM: 6:45am we received another troponin of 10.70. ST elevations were seen in V1, V2, V3 with T wave flattening in V4, V5, V6. Dr Ye was informed of new updates. He advised team to continue current management as he will see the patient and is aware of patient's wishes, as patient still will not agree to any procedures being done to him. Patient denies any chest pain, shortness of breath, or any cardiac symptoms and is in no acute distress. He only complains of abdominal discomfort, which maybe an atypical presentation, considering his T2DM.
[2018-07-06 06:30] VITALS: BP 158/72
--- NOTE | 2018-07-06 07:37 | PN- Housestaff ---
See Addendum Kunal Rausch 07/06/18 0737: Subjective Follow-up For: Sepsis secondary to UTI Elevated Troponins YANET Subjective: Afebrile overnight. Patient is seen and examined in bed. Patient had abdominal discomfort overnight with elevated troponins and T-wave flattening in V5-V6. Patient spoke with Dr. Ye yesterday and at that time was not interested in further cardiac intervention but today states he would like to proceed with a cardiac cath, if necessary. Spoke with patient again and he decides to change his mind to not proceed with a cardiac cath at this time due to multiple concerns, including insurance issues, ability to obtain medications, and medical compliance post any intervention. Patient further declines any medical social consultant or psych evaluation. Patient otherwise this morning denies any chest pain or shortness of breath. Patient notes he was not able to control his urine last night and wanted a aeljandre, and currently receiving straight cath. Review of Systems Constitutional: Reports: see HPI. Objective Last 24 Hrs of Vital Signs/I&O Vital Signs Date Time Temp Pulse Resp B/P B/P Pulse O2 O2 Flow FiO2 Mean Ox Delivery Rate 07/06 0848 70 150/70 07/06 0848 70 150/70 07/06 0630 98.0 72 18 158/72 91 Room Air 07/05 2322 98.2 78 16 158/70 91 Room Air 07/05 2058 83 158/80 07/05 1730 98.4 78 16 132/62 93 Room Air 07/05 1039 95 Room Air Intake & Output 07/06 1600 07/06 0800 07/06 0000 Intake Total Output Total 400 300 Balance -400 -300 Number 1 Bowel Movements Output, Urine 400 300 Patient 234 lb Weight Weight Bed scale Measurement Method Physical Exam General Appearance: Alert, Oriented X3, Cooperative, No Acute Distress Skin: No Rashes, No Breakdown HEENT: Atraumatic Neck: Supple, No JVD Cardiovascular: Regular Rate, Normal S1, Normal S2 Lungs: Clear to Auscultation Abdomen: Soft, No Tenderness Neurological: Normal Speech Extremities: minor left leg redness noted; no tenderness Assessment/Plan Assessment: Chest X-Ray - No acute cardiopulmonary findings Head CT - 1. No acute intracranial pathology. 2. No CT evidence of acute cervical spine fracture or traumatic subluxation 73 YO male with past medical history significant for type 2 diabetes mellitus, BPH, orthostatic hypotension, chronic back pain, was brought in via EMS to the emergency room with chief complaint of altered mental status. #Sepsis secondary to UTI Patient presented with lethargy, weakness. He was found to have T-max 103.8, tachycardia, leukocytosis and bandemia. Urinalysis showed nitrates, esterase, bacteria, WBC. He will be admitted to [facility] for sepsis secondary to UTI versus hyperthermia. -Admit to [facility] -Monitor vitals every shift -Maintain oxygen saturations greater than 90 -Monitor for fever, leukocytosis -Follow-up blood cultures 2 -Follow-up urine cultures -Continue IV ceftriaxone -Continue IV fluids #Elevated Troponins with T-wave flattening on EKG -Cardiology consulted; patient has changed his mind several times on whether to proceed with cardiac cath or not; patient told likely he will need to take medication and be compliant with the procedure to proceed further but patient declined any further intervention at the present moment due to insurance issues and inability to comply with medical recommendations; patient further declined any social work or psychiatric evaluation -ECHO; finding shows severe aortic stenosis -f/u Trops/EKG #Acute kidney injury Creatinine 1.6 at the time of admission. His baseline creatinine was 0.8 most likely secondary to dehydration and hyperthermia -Adequate hydration -Recheck creatinine in the a.m. -Avoid nephrotoxic agents #Diabetes mellitus Patient has chronic history of type 2 diabetes mellitus. He is supposed to take Levemir and oral hypoglycemic agents. However he stopped taking all his medications. He stopped following up Dr. Anand. -Accu-Cheks -Levemir 14 units at bedtime -NovoLog sliding scale #Mild elevation of creatinine kinase -Provide gentle hydration #Generalized weakness -PT consult -Follow-up thyroid function tests -Follow-up vitamin D -Follow-up B12 and folate -Follow-up iron studies DVT prophylaxis Regular diet DNR/DNI Problem List: 1. Sepsis 2. UTI (urinary tract infection) 3. Acute renal failure 4. Elevated troponin Pain Ratin Pain Location: na Pain Goal: Remain pain free Pain Plan: as needed pain meds Tomorrow's Labs & Rationales: routine Esmer Knutson 07/06/18 1321: Attending Review Statement Attending Statement Attending MD Statement: examined this patient, discuss w/resident/PA/KNITTER MACHINE, agreed w/resident/PA/KNITTER MACHINE, reviewed EMR data (avail), discussed with nursing, discussed with case mgmt Attending Assessment/Plan: Increased Trop to 10.7 / NSTEMI- cont on medical management. pt started on heparin drip last night. d/w Dr Ye- given the pt non compliance with meds and unwillingness to take meds in future we will hold off on any aggressive plans for cardiac cath. His echo shows severe aortic stenosis which means he may possibly need AVR done too but given his h/o non compliance with meds this may not be an option and pt does not want any aggressive measures at present. Pt refusing to be seen by psych . Pt also does not want any help from medical social consultant and case management either. UTI/ Sepsis- cont with current abx regimen for now. Pt wants to be DNR/DNI for now and feels that he is 73 and does not want to be on life support even for a short time. d/w pt the care plan.
--- NOTE | 2018-07-06 07:37 | Discharge Summary ---
Visit Information Visit Dates Admission Date: 07/05/18 Discharge Date: 07/08/18 Hospital Course Course Attending Physician: Jammie Carrera MD Primary Care Physician: Patient Has No Primary Care Dr Hospital Course: 73 YO male with past medical history significant for type 2 diabetes mellitus, BPH, orthostatic hypotension, chronic back pain, was brought in via EMS to the emergency room with chief complaint of altered mental status. Patient was found by neighbors down in his house, EMS was called. Patient was unable to walk or move by the time EMS reached. He is alert, awake however lethargic and weak and he was stuck between bed and the wall, unable to get out. He refused to come to the emergency room. Later POLICE was called and he was brought into the emergency room. #Sepsis secondary to UTI Patient presented with lethargy, weakness. He was found to have T-max 103.8, tachycardia, leukocytosis and bandemia. Urinalysis showed nitrates, esterase, bacteria, WBC. He will be admitted to [facility] for sepsis secondary to UTI versus hyperthermia. -Monitored vitals every shift -Maintained oxygen saturations greater than 90 -Monitor for fever, leukocytosis -Continue IV ceftriaxone, change to Augmentin as outpatient to complete antibiotic course -Finasteride 5 mg and Tamsulosin .4 mg #Elevated Troponins with T-wave flattening on EKG -Cardiology consulted; patient has changed his mind several times on whether to proceed with cardiac cath or not; patient told likely he will need to take medication and be compliant with the procedure to proceed further but patient declined any further intervention at the present moment due to insurance issues and inability to comply with medical recommendations; patient further declined any social work or psychiatric evaluation -ECHO; finding shows severe aortic stenosis -Metoprolol 25 mg BID #Acute kidney injury Creatinine 1.6 at the time of admission. His baseline creatinine was 0.8 most likely secondary to dehydration and hyperthermia -Adequate hydration -Avoided nephrotoxic agents #Diabetes mellitus Patient has chronic history of type 2 diabetes mellitus. He is supposed to take Levemir and oral hypoglycemic agents. However he stopped taking all his medications. He stopped following up Dr. Anand. -Accu-Cheks -Levemir 14 units at bedtime -NovoLog sliding scale #Mild elevation of creatinine kinase -Provided gentle hydration Allergies: Coded Allergies: No Known Allergies (06/25/16) Significant Procedures: Chest X-Ray - No acute cardiopulmonary findings Head CT - 1. No acute intracranial pathology. 2. No CT evidence of acute cervical spine fracture or traumatic subluxation Disposition Summary Disposition Principal Diagnosis: Sepsis secondary to UTI Additional Diagnosis: Elevated Troponins Discharge Disposition: home or self care Discharge Instructions General Discharge Information Code Status: Do Not Resucitate/Intubat Patient's Diet: regular Patient's Activity: ad thalia Follow-Up Instructions/Appts: Please follow up with a PCP within one week. Please follow up with an electrical prospector and child care center assistant director within one week. Please take home medications as required. Medications at Discharge Discharge Medications: Stop taking the following medications: Aspirin (Ecotrin*) 81 MG TABLET.DR ORAL DAILY Tamsulosin HCl (Flomax) 0.4 MG CAP.ER.24H ORAL DAILY Qty = 30 Fludrocortisone Acetate (Fludrocortisone Acetate) 0.1 MG TABLET ORAL DAILY Qty = 30 Continue taking these medications: Acetaminophen (Tylenol) 325 MG TABLET 1 Tablet ORAL EVERY 8 HOURS as needed for PAIN Qty = 30 Comments: NOT GIVEN Insulin Detemir (Levemir) 100 UNIT/1 ML VIAL 14 Units SC AT BEDTIME Qty = 30 Comments: Last Taken: 07/07/18 Time: 9 PM Metformin Hydochloride (Glucophage) 500 MG TABLET 1 Tablet ORAL 1/2 HR BEFORE BREAKFAST/DINNER Qty = 30 Comments: DID NOT RECIEVE Sitagliptin Phosphate (Januvia) 100 MG TABLET 1 Tablet ORAL DAILY Qty = 30 Comments: DID NOT RECIEVE Start taking the following new medications: Augmentin (Augmentin 500-125 Tablet) 500 MG-125 MG TABLET 1 Tablet ORAL THREE TIMES DAILY Qty = 12 No Refills Instructions: Please take three times daily, with meals. Comments: DID NOT RECIEVE Clopidogrel Bisulfate (Plavix) 75 MG TABLET 1 Tablet ORAL DAILY Qty = 30 No Refills Instructions: Please take as directed Comments: Last Taken: 07/08/18 Time: 9 AM Simvastatin (Simvastatin*) 80 MG TABLET 1 Tablet ORAL DAILY Qty = 30 No Refills Instructions: Please take as directed Comments: Last Taken: 07/07/18 Time: 5 PM Metoprolol Tartrate (Metoprolol Tartrate) 25 MG TABLET 1 Tablet ORAL TWICE DAILY Qty = 60 No Refills Instructions: Please take as directed Comments: Last Taken: 07/08/18 Time: 9 AM Cyanocobalamin (Vitamin B-12) 1,000 MCG TABLET 1 Tablet ORAL DAILY Qty = 30 No Refills Instructions: Please take as directed Comments: Last Taken: 07/08/18 Time: 9 AM Finasteride (Finasteride) 5 MG TABLET 1 Tablet ORAL DAILY Qty = 30 No Refills Instructions: Please take as directed Comments: Last Taken: 07/08/18 Time: 9 AM Tamsulosin HCl (Flomax) 0.4 MG CAP.ER.24H 1 Tablet ORAL DAILY Qty = 30 No Refills Comments: Last Taken: 07/08/18 Time: 9 AM Aspirin (Aspirin*) 81 MG TAB.CHEW 1 Tablet ORAL DAILY Qty = 30 No Refills Comments: Last Taken: 07/08/18 Time: 9 AM Omeprazole (Omeprazole) 40 MG CAPSULE.DR 1 Capsule ORAL DAILY Qty = 30 No Refills Comments: Last Taken: 07/08/18 Time: 6 AM Ergocalciferol (Vitamin D2) (Vitamin D2) 50,000 UNIT CAPSULE 1 Capsule ORAL ONCE A WEEK Qty = 4 No Refills Comments: Last Taken: 07/08/18 Time: 9 AM Copies To: no known pcp Attending MD Review Statement Documenting Attending: Eamon COLBERT,Esmer Leyva
--- NOTE | 2018-07-06 07:41 | Patient Discharge Instructions ---
Discharge Instructions General Discharge Information You were seen/treated for: Urinary Tract Infection Acute Kidney Injury Acute Coronary Syndrome You had these procedures: EKG ECHO RENAL Ultrasound Watch for these problems: If you experience any worsening chest pain, shortness of breath, fevers, chills, fatigue, and ligtheadedness please follow up with a PCP. Special Instructions: Please follow up with a PCP within one week. Please follow up with an member of congress and bacon de rinder within one week. Please take home medications as required. Diet Continue normal diet: No Recommended Diet: Diabetic Activity Full Activity/No Limits: No Activity Self Limited: Yes Acute Coronary Syndrome Inclusion Criteria At DC or during hospital stay patient has or had the following: ACS DIAGNOSIS Yes Discharge Core Measures Meds if any: Prescribed or Continued at Discharge Meds if any: NOT Prescribed or Continued at Discharge Congestive Heart Failure Inclusion Criteria At DC or during hospital stay patient has or had the following: CHF DIAGNOSIS No Discharge Core Measures Meds if any: Prescribed or Continued at Discharge Meds if any: NOT Prescribed or Continued at Discharge Cerebrovascular accident Inclusion Criteria At DC or during hospital stay patient has or had the following: CVA/TIA Diagnosis No Discharge Core Measures Meds if any: Prescribed or Continued at Discharge Meds if any: NOT Prescribed or Continued at Discharge Venous thromboembolism Inclusion Criteria VTE Diagnosis No VTE Type NONE VTE Confirmed by (Test) NONE Discharge Core Measures - Per Current guidelines, there needs to be overlap - treatment for the first 5 days of Warfarin therapy. - If discharged on Warfarin prior to 5 days of - overlap therapy, the patient will need to be - assessed for post discharge needs including - *Post discharge parental anticoagulation - *Warfarin and/or parental anticoagulation education - *Follow up date to check INR post discharge At least 5 days overlap therapy as Inpatient No Meds if any: Prescribed or Continued at Discharge Note: Overlap Therapy is Warfarin and Anticoagulant Meds if any: NOT Prescribed or Continued at Discharge
[2018-07-06 08:14] LABS: ABSOLUTE BASOPHIL COUNT 0 /CUMM (0.0-0.2); ABSOLUTE EOSINOPHIL COUNT 0.4 /CUMM (0.0-0.7); ABSOLUTE GRANULOCYTE CT 11.5 /CUMM (1.4-6.5); ABSOLUTE LYMPH COUNT 0.9 /CUMM (1.2-3.4); ABSOLUTE MONOCYTE COUNT 0.8 /CUMM (0.10-0.60); BASOPHIL % 0.2 % (0.0-2.0); EOSINOPHIL % 3.2 % (0-5); HEMATOCRIT 31.7 % (42-52); MEAN CORPUSCULAR HGB 28.3 PG (27.0-31.0); MEAN CORPUSCULAR HGB CONC 34.5 G/DL (33.0-37.0); MEAN CORPUSCULAR VOLUME 82.1 FL (80.0-94.0); MEAN PLATELET VOLUME 10.2 FL (7.4-10.4); PLATELET COUNT 209 /CUMM (130-400); RBC DISTRIBUTION WIDTH 15.8 % (11.5-14.5); RED BLOOD CELL CT 3.87 /CUMM (4.70-6.10); WHITE BLOOD CELL COUNT 13.7 /CUMM (4.8-10.8)
--- NOTE | 2018-07-06 10:42 | ECHOCARDIOGRAM REPORT ---
JOSHUA ARTEAGA Age: 73 : 1945 Gender: M Exam Date: 07/05/2018 18:47 Exam Location: [address] Ht (in): 70 Wt (lb): 240 BSA: 2.36 BP: 151 / 67 Ordering Physician: Kunal Rausch MD Referring Physician: Pino Ye MD Technologist: Rachael Enciso MAIKOL Room Number: 171 Indications: Presyncope/syncope Rhythm: Sinus Technical Quality: Technically difficult study FINDINGS Left Ventricle Normal size left ventricle. Mild concentric left ventricular hypertrophy. Abnormal relaxation filling pattern of the left ventricle for age (stage 1 diastolic dysfunction). Normal left ventricular ejection fraction visually estimated at 55 %. No obvious regional wall motion abnormalities. Right Ventricle Normal right ventricular size and function. Right Atrium Normal right atrial size. Left Atrium Mild left atrial dilatation. Mitral Valve Mild mitral annular calcification. Mitral valve thickened. Mild mitral regurgitation. Aortic Valve Diffuse thickening of the aortic valve cusps with reduced excursion. Severe aortic stenosis. [id number] aortic regurgitation. Tricuspid Valve Tricuspid valve not well visualized, grossly normal. Trace tricuspid regurgitation. Right ventricular systolic pressure estimated to be elevated at 60 mmHg. Pulmonic Valve Mild pulmonic regurgitation. Pulmonic valve not well visualized, grossly normal. Pericardium No pericardial effusion. Great Vessels Mildly dilated ascending aorta with diameter of 4.2 cm. CONCLUSIONS Normal size left ventricle. Mild concentric left ventricular hypertrophy. Abnormal relaxation filling pattern of the left ventricle for age (stage 1 diastolic dysfunction). Normal left ventricular ejection fraction visually estimated at 55 %. No obvious regional wall motion abnormalities. Mild left atrial dilatation. Mild mitral regurgitation. Diffuse thickening of the aortic valve cusps with reduced excursion. Severe aortic stenosis. [id number] aortic regurgitation. Trace tricuspid regurgitation. Right ventricular systolic pressure estimated to be elevated at 60 mmHg. Mild pulmonic regurgitation. Mildly dilated ascending aorta with diameter of 4.2 cm. Pino Ye M.D. (Electronically Signed) Final Date: 06 July 2018 10:39 MEASUREMENTS (Male / Female) Normal Values 2D ECHO LV Diastolic Diameter PLAX 5.0 cm 4.2 - 5.9 / 3.9 - 5.3 cm LV Systolic Diameter PLAX 3.5 cm 2.1 - 4.0 cm LV Fractional Shortening PLAX 30.0 % 25 - 46 % LV Ejection Fraction 2D Teich 57.0 % IVS Diastolic Thickness 1.4 cm LVPW Diastolic Thickness 1.4 cm LV Relative Wall Thickness 0.6 RV Internal Dim ED PLAX 3.3 cm 1.9 - 3.8 cm LVOT Diameter 2.3 cm Aortic Root Diameter 4.0 cm LA Systolic Diameter LX 5.3 cm 3.0 - 4.0 / 2.7 - 3.8 cm LA Volume 55.0 cm 18 - 58 / 22 - 52 cm Ascending Aorta Diameter 4.2 cm DOPPLER AV Peak Velocity 439.0 cm/s AV Peak Gradient 77.1 mmHg AV Mean Velocity 328.0 cm/s AV Mean Gradient 48.0 mmHg AV Velocity Time Integral 100.0 cm AI Deceleration Mellette 458.0 cm/s AI Peak Velocity 488.0 cm/s AI Pressure Half Time 312.0 ms AI Peak Gradient 95.3 mmHg LVOT Peak Velocity 123.0 cm/s LVOT Peak Gradient 6.1 mmHg LVOT Mean Velocity 85.1 cm/s LVOT Mean Gradient 3.0 mmHg LVOT Velocity Time Integral 25.8 cm LVOT Stroke Volume 107.2 cm AV Area Cont Eq vti 1.1 cm AV Area Cont Eq pk 1.2 cm MV Peak Velocity 144.0 cm/s MV Peak Gradient 8.3 mmHg MV Mean Velocity 78.4 cm/s MV Mean Gradient 3.0 mmHg Mitral E Point Velocity 119.0 cm/s Mitral A Point Velocity 141.0 cm/s Mitral E to A Ratio 0.8 MV PHT Velocity 119.0 cm/s MV Deceleration Mellette 591.0 cm/s MV Pressure Half Time 60.4 ms MV Area PHT 3.6 cm MV Deceleration Time 161.0 ms TR Peak Velocity 373.0 cm/s TR Peak Gradient 55.7 mmHg Right Atrial Pressure 5.0 mmHg Pulmonary Artery Systolic Pressure 60.7 mmHg Right Ventricular Systolic Pressure 60.7 mmHg PV Peak Velocity 109.0 cm/s PV Peak Gradient 4.8 mmHg PV Mean Velocity 67.1 cm/s PV Mean Gradient 2.0 mmHg PV Velocity Time Integral 22.7 cm LV E' Lateral Velocity 6.3 cm/s Mitral E to LV E' Lateral Ratio 18.8 LV E' Septal Velocity 4.2 cm/s Mitral E to LV E' Septal Ratio 28.4
--- NOTE | 2018-07-06 11:25 | PN- Cardiology ---
Subjective Subjective: The patient reports that he is feeling well. No chest pain. No shortness of breath. No palpitations. No diaphoresis. He that he refuses to continue any medications after his discharge from the hospital. He declines surgery and invasive procedures. He specifically declines cardiac catheterization because stent placement would require him to take an anti-platelet medication. Objective Vital Signs and I&Os Vital Signs Date Time Temp Pulse Resp B/P B/P Pulse O2 O2 Flow FiO2 Mean Ox Delivery Rate 07/06 1431 98.3 70 18 140/78 91 Room Air 07/06 0848 70 150/70 07/06 0848 70 150/70 07/06 0630 98.0 72 18 158/72 91 Room Air 07/05 2322 98.2 78 16 158/70 91 Room Air 07/05 2058 83 158/80 Intake & Output 07/06 1600 07/06 0800 07/06 0000 07/05 1600 07/05 0000 Intake Total 1579 660 1918 3000 Output Total 900 400 300 100 300 200 Balance 200 -400 -102 403 5970 2800 Intake, IV 189 525 6876 3000 Intake, Oral 600 60 Number 1 Bowel Movements Output, Urine 900 400 300 100 300 200 Patient 234 lb 240 lb 240 lb Weight Weight Bed scale Estimated Measurement Method Physical Exam: Gen: The patient is in no acute distress HEENT: Normal nose, ears, and oropharynx. Pupils equal bilaterally. Conjunctiva normal. Neck: Supple with no JVD, no masses, and no thyromegaly Lungs: Clear to auscultation with normal respiratory effort Heart: RRR, S1, S2, 2/6 systolic murmur. 1+ peripheral edema, 1+ pulses in the lower extremities bilaterally Abdomen: Soft, nontender, no masses. No hepatomegaly. No splenomegaly Extremities: No clubbing or cyanosis. Normal muscle strength in the upper and lower extremities Skin: Normal skin turgor with no skin ulcers or lesions noted. Neuro: Cranial nerves intact. Sensation intact Current Medications: Current Medications Sig/Chuyita Start time Last Medication Dose Route Stop Time Status Admin Acetaminophen 650 MG Q6P PRN 07/050 AC PO Acetaminophen 1,000 MG Q6P PRN 07/05 200 AC IV Aspirin 325 MG ONCE ONE 07/05 1815 DC 07/05 PO 07/05 Aspirin Buffered 81 MG DAILY 07/05 900 AC 07/06 PO 0847 Atorvastatin Calcium 40 MG 1700 07/05 1700 AC 07/06 PO 1550 Ceftriaxone Sodium 1,000 MG Q24H 07/06 0100 AC 07/06 IV 0039 Cholecalciferol 6,000 IU DAILY 07/05 0900 AC 07/06 PO 0848 Clopidogrel Bisulfate 75 MG DAILY 07/06 0900 AC 07/06 PO 0848 Clopidogrel Bisulfate 0 .STK-MED ONE 07/05 1934 DC PO Clopidogrel Bisulfate 300 MG ONCE ONE 07/05 1800 DC 07/05 PO 07/05 1801 1938 Cyanocobalamin 250 MCG DAILY 07/06 1325 AC 07/06 PO 1550 Ergocalciferol 50,000 IU ONCE A WEEK 07/05 1600 AC 07/05 PO 1804 Heparin Sodium 0 .STK-MED ONE 07/06 0425 DC (Porcine) .ROUTE Heparin Sodium 25,000 UNIT Q24H 07/05 1845 AC 07/05 (Porcine) IV 1945 Sodium Chloride 500 ML Heparin Sodium 5,000 UNIT Q8 07/05 0600 DC 07/05 (Porcine) SC 1359 Insulin Aspart 0 TIDAC 07/05 0200 AC 07/05 SC 0829 Insulin Detemir 14 UNITS AT BEDTIME 07/05 2100 AC 07/05 SC 2056 Metoprolol Tartrate 12.5 MG BID 07/05 2100 AC 07/06 PO 0848 Multivitamins 1 TAB DAILY 07/06 1325 AC 07/06 PO 1550 Omeprazole 40 MG DAILY AC 07/06 1600 AC 07/06 PO 1711 Sodium Chloride 1,000 ML Q13H 07/05 0200 DC 07/05 IV 07/06 0359 2230 Tamsulosin HCl 0.4 MG DAILY 07/05 0900 AC 07/06 PO 0848 Results Last 48 Hrs of Labs/Mics: Laboratory Tests 07/06/18 1100: Troponin I 9.23 *H, APTT 62 H 07/06/18 0632: Anion Gap 8, Estimated GFR 54 L, BUN/Creatinine Ratio 24.6, CBC w Diff NO MAN DIFF REQ, RBC 3.87 L, MCV 82.1, MCH 28.3, MCHC 34.5, RDW 15.8 H, MPV 10.2, Gran % 84.0 H, Lymphocytes % 6.5 L, Monocytes % 6.1, Eosinophils % 3.2, Basophils % 0.2, Absolute Granulocytes 11.5 H, Absolute Lymphocytes 0.9 L, Absolute Monocytes 0.8 H, Absolute Eosinophils 0.4, Absolute Basophils 0 07/06/18 0445: Creatine Kinase 471 H, Troponin I 10.70 *H 07/06/18 0220: APTT 34 07/05/18 2230: Troponin I 8.95 *H 07/05/18 1451: Troponin I 6.02 *H 07/05/18 0642: Anion Gap 7, Estimated GFR 46 L, BUN/Creatinine Ratio 24.0, Hemoglobin A1c 7.8 H, Creatine Kinase 977 H, Troponin I 1.08 *H, Triglycerides 108, Cholesterol 161, LDL Cholesterol, Calc 107, HDL Cholesterol 33 L, Cholesterol/HDL Ratio 5 H, CBC w Diff NO MAN DIFF REQ, RBC 3.98 L, MCV 81.4, MCH 28.0, MCHC 34.3, RDW 15.5 H, MPV 9.7, Gran % 92.6 H, Lymphocytes % 2.5 L, Monocytes % 4.7, Eosinophils % 0.1, Basophils % 0.1, Absolute Granulocytes 19.4 H, Absolute Lymphocytes 0.5 L, Absolute Monocytes 1.0 H, Absolute Eosinophils 0, Absolute Basophils 0 07/05/18 0044: Lactic Acid Cancelled 07/04/18 2315: Urine Color YEL, Urine Clarity HAZY H, Urine pH 6.0, Ur Specific [place] 1.025, Urine Protein 100 H, Urine Ketones NEG, Urine Nitrite POS H, Urine Bilirubin NEG, Urine Urobilinogen 0.2, Ur Leukocyte Esterase SMALL H, Ur Microscopic SEDIMENT EXAMINED, Urine RBC FEW H, Urine WBC 10-15 H, Ur Epithelial Cells RARE, Urine Bacteria FEW H, Urine Hemoglobin LARGE H, Urine Glucose NEG 07/04/18 2243: Anion Gap 11, Estimated GFR 43 L, BUN/Creatinine Ratio 27.5 H, Glucose 220 H, Lactic Acid 1.6, Calcium 8.8, Iron 28 L, TIBC 265, Ferritin 95.6, Total Bilirubin 0.7, AST 23, ALT 23, Alkaline Phosphatase 118, Creatine Kinase 277 H, Troponin I 0.08, Total Protein 7.1, Albumin 3.4 L, Globulin 3.7, Albumin/ Globulin Ratio 0.9 L, Vitamin B12 306, 25-OH Vitamin D Total 9.1 L, Folate 4.2 , TSH 3.830, Thyroxine (T4) 6.5, CBC w Diff MAN DIFF ORDERED, RBC 4.23 L, MCV 82.5, MCH 27.8, MCHC 33.7, RDW 15.7 H, MPV 9.4, Gran % 95.3 H, Lymphocytes % 1.6 L, Monocytes % 2.9, Eosinophils % 0.2, Basophils % 0, Absolute Granulocytes 22.1 H, Segmented Neutrophils 82 H, Band Neutrophils 6 H, Absolute Lymphocytes 0.4 L, Lymphocytes 4 L, Monocytes 8, Absolute Monocytes 0.7 H, Absolute Eosinophils 0, Absolute Basophils 0, Platelet Estimate ADEQUATE, Normocytic RBCs VERIFIED, Normochromic RBCs VERIFIED, Anisocytosis 1+ Recent Imaging Studies: Echocardiogram July 06, 2018: Normal size left ventricle. Mild concentric left ventricular hypertrophy. Abnormal relaxation filling pattern of the left ventricle for age (stage 1 diastolic dysfunction). Normal left ventricular ejection fraction visually estimated at 55 %. No obvious regional wall motion abnormalities. Mild left atrial dilatation. Mild mitral regurgitation. Diffuse thickening of the aortic valve cusps with reduced excursion. Severe aortic stenosis. [id number] aortic regurgitation. Trace tricuspid regurgitation. Right ventricular systolic pressure estimated to be elevated at 60 mmHg. Mild pulmonic regurgitation. Mildly dilated ascending aorta with diameter of 4.2 cm. Assessment/Plan Assessment/Plan Assessment: 1. Type 2 diabetes mellitus 2. Urinary tract infection 3. Severe aortic stenosis 4. Elevated troponin elevation with no chest pain. Likely type to versus type 1 myocardial infarction. recommendations: * I reviewed the echocardiogram result with the patient, which shows severe aortic stenosis. The current decompensation may represent symptomatic aortic stenosis, and aortic valve replacement either surgical or transcatheter is a consideration. I discussed this with the patient and he states that he is not interested in any surgery or invasive procedures * the patient is willing to take medications in the hospital, however he declines any outpatient medications. He states that he plans to discontinue all medications on discharge. * The patient declines cardiac catheterization. his noncompliance and intention to avoid taking medications after discharge would preclude stent placement given the need for dual anti-platelet therapy after stent placement. * Given the lack of definite cardiac symptoms, the patient's preference, and the patient's stated plan to discontinue all medications on discharge we will continue conservative management for the positive troponin. * Continue aspirin, Plavix, heparin * Increase metoprolol to 25 milligrams p.o. b.i.d. * IV antibiotic therapy as per the medical service Continue telemetry? Yes
[2018-07-06 11:44] LABS: PTT 62 SEC (25-37)
[2018-07-06 14:31] VITALS: BP 140/78
[2018-07-06 22:49] VITALS: BP 158/80
[2018-07-07 00:57] LABS: PTT 48 SEC (25-37)
[2018-07-07 06:30] VITALS: BP 168/74
--- NOTE | 2018-07-07 07:43 | Cons- Urology ---
General Information and HPI Consulting Request Date of Consult: 07/07/18 Requested By: Esmer Knutson MD Reason for Consult: BPH-URINARY RETENTION WITH SEPSIS Source of Information: patient, old records Exam Limitations: no limitations History of Present Illness: 73 yr old with at least 2 year hx urinary retentive symptoms: presents to ER with painful urinary retention and sepsis: positive levels resulted in cardiac floor admission. pt had required intermittent catheterization during hospital stay with significant relief of pain. pt states that he is now voiding as usual , and with hourly nocturia. Allergies/Medications Allergies: Coded Allergies: No Known Allergies (06/25/16) Home Med List: Acetaminophen (Tylenol) 325 MG TABLET 1 TAB PO Q8 PRN PAIN Aspirin (Ecotrin*) 81 MG TABLET.DR 1 TAB PO DAILY HEART HEALTH (Reported) Fludrocortisone Acetate 0.1 MG TABLET 1 TAB PO DAILY DIZZINESS ON STANDING Insulin Detemir (Levemir) 100 UNIT/1 ML VIAL 14 UNITS SC AT BEDTIME DM Metformin Hydochloride (Glucophage) 500 MG TABLET 1 TAB PO 1/2H B/BREAKF/ DINNER DM Sitagliptin Phosphate (Januvia) 100 MG TABLET 1 TAB PO DAILY DM Tamsulosin HCl (Flomax) 0.4 MG CAP.ER.24H 1 TAB PO DAILY URINARY RETENTION Current Medications: Current Medications Sig/Chuyita Start time Last Medication Dose Route Stop Time Status Admin Acetaminophen 650 MG Q6P PRN 07/05 0200 AC PO Acetaminophen 1,000 MG Q6P PRN 07/05 0200 AC IV Aspirin Buffered 81 MG DAILY 07/05 0900 AC 07/06 PO 0847 Atorvastatin Calcium 40 MG 1700 07/05 1700 AC 07/06 PO 1550 Ceftriaxone Sodium 1,000 MG Q24H 07/06 0100 AC 07/07 IV 0132 Cholecalciferol 6,000 IU DAILY 07/05 0900 AC 07/06 PO 0848 Clopidogrel Bisulfate 75 MG DAILY 07/06 0900 AC 07/06 PO 0848 Cyanocobalamin 250 MCG DAILY 07/06 1325 AC 07/06 PO 1550 Ergocalciferol 50,000 IU ONCE A WEEK 07/05 1600 AC 07/05 PO 1804 Finasteride 5 MG DAILY 07/07 0900 AC PO Heparin Sodium 0 .STK-MED ONE 07/07 013 DC (Porcine) .ROUTE Heparin Sodium 25,000 UNIT Q24H 07/05 1845 AC 07/06 (Porcine) IV 2019 Sodium Chloride 500 ML Insulin Aspart 0 TIDAC 07/05 0200 AC 07/05 SC 828 Insulin Detemir 14 UNITS AT BEDTIME 07/05 2100 AC 07/06 SC 2010 Metoprolol Tartrate 25 MG BID 07/06 2100 AC 07/06 PO 2017 Metoprolol Tartrate 12.5 MG BID 07/05 2100 DC 07/06 PO 0848 Multivitamins 1 TAB DAILY 07/06 1325 AC 07/06 PO 1550 Omeprazole 40 MG DAILY AC 07/06 1600 AC 07/07 PO 0501 Tamsulosin HCl 0.4 MG DAILY 07/05 0900 AC 07/06 PO 0848 Past History Medical History Neurological: NONE EENT: NONE Cardiovascular: hypertension Respiratory: NONE Gastrointestinal: NONE Hepatic: NONE Renal: benign prost hyperplasia, DYSURIA Musculoskeletal: chronic back pain Psychiatric: NONE Endocrine: diabetes Blood Disorders: NONE Cancer(s): NONE 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 Home Who Do You Live With? self Services at Home: None Smoking Status: Never Smoked ETOH Use: denies use Illicit Drug Use: denies illicit drug use Functional Ability ADLs Independent: dressing, eating, toileting, bathing. Employment History Retired? unknown Review of Systems Review of Systems Constitutional: Reports: see HPI. EENTM: Denies: no symptoms. Cardiovascular: Denies: no symptoms. Respiratory: Denies: no symptoms. GI: Reports: bloating. Genitourinary: Reports: see HPI. Musculoskeletal: Denies: no symptoms. Skin: Denies: no symptoms. Exam & Diagnostic Data Vital Signs and I&O Vital Signs Date Time Temp Pulse Resp B/P B/P Pulse O2 O2 Flow FiO2 Mean Ox Delivery Rate 07/07 630 97.8 66 18 168/74 93 Nasal 1.0L Cannula 07/07 0000 Nasal 1.0L Cannula 07/06 2249 97.4 81 16 158/80 07/06 2017 8 170/74 07/06 1431 98.3 70 18 140/78 91 Room Air 07/06 0848 70 150/70 07/06 0848 70 150/70 Intake & Output 07/07 0807/07 0000 07/06 1600 08/30 0800 07/06 0000 07/05 1600 Intake Total 704 1100 560 Output Total 525 400 900 400 300 100 Balance 179 -400 200 -400 -300 460 Intake, IV 264 500 500 Intake, Oral 440 600 60 Number 1 Bowel Movements Output, Urine 525 400 900 400 300 100 Patient 243 lb 234 lb 240 lb Weight Weight Bed scale Measurement Method Physical Exam General Appearance: well developed/nourished, no apparent distress, obese Head: atraumatic Eyes: Bilateral: normal appearance. Neck: normal inspection Respiratory: normal breath sounds Cardiovascular: regular rate/rhythm Gastrointestinal: normal bowel sounds, soft Back: no vertebral tenderness Extremities: normal inspection Neurologic/Psych: no motor/sensory deficits, awake, alert, oriented x 3 Skin: intact, normal color Reproductive: Normal male genitalia Last 24 Hours of Labs: Laboratory Tests 07/07 07/06 0010 1100 Chemistry Troponin I (<0.11 ng/ml) 9.23 *H Coagulation APTT (25 - 37 SEC) 48 H 62 H Imaging Results: PATIENT: JOSHUA ARTEAGA JR PRESENT AGE: 73 PATIENT ACCOUNT NO: [id number] : 47 LOCATION: [facility] ORDERING PHYSICIAN: Yesica Glass MD SERVICE DATE: 07/05/18- EXAM TYPE: US - US-RENAL/KIDNEY EXAMINATION: US RETROPERITONEAL COMPLETE (RENAL) CLINICAL INFORMATION: UTI, urinary retention. Constantly feels the need to void but never able to fully empty. COMPARISON: CT abdomen and pelvis 06/25/2016. TECHNIQUE: Real-time imaging of the kidneys and bladder. FINDINGS: Limited evaluation due to patient's body habitus, bowel gas and patient compliance with the examination. RIGHT KIDNEY: 11.4 x 6.4 x 4.5 cm (SAG x AP x TRV). The kidney is normal in size, contour, and echogenicity. Renal cortical thickness is normal. No calculi or focal parenchymal lesions. No hydronephrosis. LEFT KIDNEY: 11.8 x 4.5 x 5.0 cm (SAG x AP x TRV). The kidney is normal in size, contour, and echogenicity. Renal cortical thickness is normal. No calculi or focal parenchymal lesions. No hydronephrosis. BLADDER: Well distended and normal. Right ureteral jet is demonstrated; left is not. The patient attempted to void just prior to the exam. Postvoid bladder volume is 660 mL. The prostate measures 4.8 x 4.2 x 4.6 cm. IMPRESSION: 1. Significant postvoid residual of 660 mL. 2. Unremarkable sonographic appearance of the kidneys. DICTATED BY: Yaneth Griffith MD DATE/TIME DICTATED:07/05/181312 MINE SHIFTER:DESIREE DATE/TIME TRANSCRIBED:07/05/181312 CONFIDENTIAL, DO NOT COPY WITHOUT APPROPRIATE AUTHORIZATION. <Electronically signed in Other Vendor System> SIGNED BY: Yaneth Griffith MD 07/05/18 2080 Assessment/Plan Assessment/Plan bph/retention-sepsis/add proscar with flomax. see attnd. note. Copies To: Clint Floyd MD Consult Acknowledgment - Thank you for your consult request. Attending MD Review Statement Attending Statement Attending MD Statement: examined this patient, discuss w/resident/PA/ONCOLOGY REP Attending Assessment/Plan: pt with BPH retention exacerbating his sepsis: now resolving. Pt voiding better on flomax, but would recommend combination therapy along with proscar 5mg/day: if again in retention, recommend leaving alejandre catheter in place. Pt will need outpatient f/u with cystoscopy to evaluate need for TURP in future.
--- NOTE | 2018-07-07 07:45 | PN- Housestaff ---
Kunal Rausch 07/07/18 0741: Subjective Follow-up For: Sepsis secondary to UTI Elevated Troponins YANET Subjective: Afebrile overnight. Patient is seen and examined in bed this morning. Patient states he did not have any chest pain or shortness of breath overnight. Patient states he had some stomach discomfort the day before that was relieved by medication we had given him which was Omeprazole. Patient otherwise had a clear PVR on bladder scan most recently and patient denied any incontinence overnight. Furthermore, the night team also increased the Metroprolol to 25 mg BID on recommendation of cardiology consultation. Review of Systems Constitutional: Reports: see HPI. Objective Last 24 Hrs of Vital Signs/I&O Vital Signs Date Time Temp Pulse Resp B/P B/P Pulse O2 O2 Flow FiO2 Mean Ox Delivery Rate 07/07 0630 97.8 66 18 168/74 93 Nasal 1.0L Cannula 07/07 0000 Nasal 1.0L Cannula 07/06 2249 97.4 81 16 158/80 07/06 2017 8 170/74 07/06 1431 98.3 70 18 140/78 91 Room Air 07/06 0848 70 150/70 07/06 0848 70 150/70 Intake & Output 07/07 0800 07/07 0000 07/06 1600 Intake Total 704 1100 Output Total 525 400 900 Balance 179 -400 200 Intake, IV 264 500 Intake, Oral 440 600 Output, Urine 525 400 900 Patient 243 lb Weight Physical Exam General Appearance: Alert, Oriented X3, Cooperative, No Acute Distress Skin: No Rashes, No Breakdown Skin Temp/Moisture Exam: Warm/Dry HEENT: Atraumatic Neck: Supple, No JVD Cardiovascular: Regular Rate, Normal S1, Normal S2 Lungs: Clear to Auscultation Abdomen: Soft, No Tenderness Neurological: Normal Speech Extremities: No Edema, Normal Pulses Assessment/Plan Assessment: Chest X-Ray - No acute cardiopulmonary findings Head CT - 1. No acute intracranial pathology. 2. No CT evidence of acute cervical spine fracture or traumatic subluxation 73 YO male with past medical history significant for type 2 diabetes mellitus, BPH, orthostatic hypotension, chronic back pain, was brought in via EMS to the emergency room with chief complaint of altered mental status. #Sepsis secondary to UTI Patient presented with lethargy, weakness. He was found to have T-max 103.8, tachycardia, leukocytosis and bandemia. Urinalysis showed nitrates, esterase, bacteria, WBC. He will be admitted to [facility] for sepsis secondary to UTI versus hyperthermia. -Monitor vitals every shift -Maintain oxygen saturations greater than 90 -Monitor for fever, leukocytosis -Continue IV ceftriaxone, change to Augmentin as outpatient to complete antibiotic course -Finasteride 5 mg and Tamsulosin .4 mg #Elevated Troponins with T-wave flattening on EKG -Cardiology consulted; patient has changed his mind several times on whether to proceed with cardiac cath or not; patient told likely he will need to take medication and be compliant with the procedure to proceed further but patient declined any further intervention at the present moment due to insurance issues and inability to comply with medical recommendations; patient further declined any social work or psychiatric evaluation -ECHO; finding shows severe aortic stenosis -f/u Trops/EKG -Metoprolol 25 mg BID #Acute kidney injury Creatinine 1.6 at the time of admission. His baseline creatinine was 0.8 most likely secondary to dehydration and hyperthermia -Adequate hydration -Recheck creatinine in the a.m. -Avoid nephrotoxic agents #Diabetes mellitus Patient has chronic history of type 2 diabetes mellitus. He is supposed to take Levemir and oral hypoglycemic agents. However he stopped taking all his medications. He stopped following up Dr. Anand. -Accu-Cheks -Levemir 14 units at bedtime -NovoLog sliding scale #Mild elevation of creatinine kinase -Provide gentle hydration #Generalized weakness -PT consult -Follow-up thyroid function tests -Follow-up vitamin D -Follow-up B12 and folate -Follow-up iron studies DVT prophylaxis Regular diet DNR/DNI Problem List: 1. Sepsis 2. UTI (urinary tract infection) 3. Acute renal failure 4. Elevated troponin Pain Ratin Pain Location: na Pain Goal: Remain pain free Pain Plan: na Tomorrow's Labs & Rationales: routine Michelle Knutsonradhika 07/07/18 1055: Attending MD Review Statement Attending Statement Attending MD Statement: examined this patient, discuss w/resident/PA/WEATHERSTRIP MACHINE OPERATOR, agreed w/resident/PA/WEATHERSTRIP MACHINE OPERATOR, reviewed EMR data (avail), discussed with nursing, discussed with case mgmt Attending Assessment/Plan: Increased Trop / NSTEMI- cont on medical management. cont on heparin drip and asprin and plavix for now. d/w cardiology given the pt non compliance with meds and unwillingness to take meds in future we will hold off on any aggressive plans for cardiac cath. His echo shows severe aortic stenosis which means he may possibly need AVR done too but given his h/o non compliance with meds this may not be an option and pt does not want any aggressive measures at present. Pt will be seen by director social to see if they can convince him to apply for insurance to cover for meds. UTI/ Sepsis- cont with current abx regimen for now. Pt wants to be DNR/DNI for now and feels that he is 73 and does not want to be on life support even for a short time. BPH- seen by urology and started on flomax and finasteride.
[2018-07-07 09:39] LABS: ABSOLUTE BASOPHIL COUNT 0.1 /CUMM (0.0-0.2); ABSOLUTE EOSINOPHIL COUNT 0.5 /CUMM (0.0-0.7); ABSOLUTE GRANULOCYTE CT 8.3 /CUMM (1.4-6.5); ABSOLUTE LYMPH COUNT 0.9 /CUMM (1.2-3.4); ABSOLUTE MONOCYTE COUNT 0.7 /CUMM (0.10-0.60); BASOPHIL % 0.7 % (0.0-2.0); EOSINOPHIL % 5.1 % (0-5); HEMATOCRIT 33.5 % (42-52); MEAN CORPUSCULAR HGB CONC 33.8 G/DL (33.0-37.0); MEAN CORPUSCULAR VOLUME 82.7 FL (80.0-94.0); MEAN PLATELET VOLUME 9.6 FL (7.4-10.4); PLATELET COUNT 219 /CUMM (130-400); RBC DISTRIBUTION WIDTH 16.1 % (11.5-14.5); RED BLOOD CELL CT 4.05 /CUMM (4.70-6.10); WHITE BLOOD CELL COUNT 10.6 /CUMM (4.8-10.8)
[2018-07-07 09:46] LABS: PTT 74 SEC (25-37)
--- NOTE | 2018-07-07 11:34 | PN- Cardiology ---
Subjective Subjective: Clinically about the same. Some dyspnea. No chest discomfort. Objective Vital Signs and I&Os Vital Signs Date Time Temp Pulse Resp B/P B/P Pulse O2 O2 Flow FiO2 Mean Ox Delivery Rate 07/07 814 70 156/84 07/07 814 70 156/84 07/07 630 97.8 66 18 168/74 93 Nasal 1.0L Cannula 07/07 0000 Nasal 1.0L Cannula 07/06 2249 97.4 81 16 158/80 07/06 2017 8 170/74 07/06 1431 98.3 70 18 140/78 91 Room Air Intake & Output 07/07 1600 07/07 0807/07 0000 07/06 1600 07/06 0000 Intake Total 704 1100 Output Total 525 400 900 400 300 Balance 179 -400 200 -400 -300 Intake, IV 264 500 Intake, Oral 440 600 Number 1 Bowel Movements Output, Urine 525 400 900 400 300 Patient 243 lb 234 lb Weight Weight Bed scale Measurement Method Physical Exam: Gen: The patient is in no acute distress HEENT: Normal nose, ears, and oropharynx. Pupils equal bilaterally. Conjunctiva normal. Neck: Supple with no JVD, no masses, and no thyromegaly Lungs: Clear to auscultation with normal respiratory effort Heart: RRR, S1, S2, 2/6 systolic murmur. 1+ peripheral edema, 1+ pulses in the lower extremities bilaterally Abdomen: Soft, nontender, no masses. No hepatomegaly. No splenomegaly Extremities: No clubbing or cyanosis. Normal muscle strength in the upper and lower extremities Skin: Normal skin turgor with no skin ulcers or lesions noted. Neuro: Cranial nerves intact. Sensation intact Current Medications: Current Medications Sig/Chuyita Start time Last Medication Dose Route Stop Time Status Admin Acetaminophen 650 MG Q6P PRN 07/05 0200 AC PO Acetaminophen 1,000 MG Q6P PRN 07/05 0200 AC IV Aspirin Buffered 81 MG DAILY 07/05 09 AC 07/07 PO 0814 Atorvastatin Calcium 40 MG 1700 07/05 1700 AC 07/06 PO 1550 Ceftriaxone Sodium 1,000 MG Q24H 07/06 0100 AC 07/07 IV 0132 Cholecalciferol 6,000 IU DAILY 07/05 900 AC 07/07 PO 08 Clopidogrel Bisulfate 75 MG DAILY 07/06 900 AC 07/07 PO 0814 Cyanocobalamin 250 MCG DAILY 07/06 1325 AC 07/07 PO 0814 Ergocalciferol 50,000 IU ONCE A WEEK 07/05 1600 AC 07/05 PO 1804 Finasteride 5 MG DAILY 07/07 0900 AC 07/07 PO 0915 Heparin Sodium 0 .STK-MED ONE 07/07 0132 DC (Porcine) .ROUTE Heparin Sodium 25,000 UNIT Q24H 07/05 1845 07/07 (Porcine) IV 1018 Sodium Chloride 500 ML Insulin Aspart 0 TIDAC 07/05 0200 AC 07/05 SC 08 Insulin Detemir 14 UNITS AT BEDTIME 07/05 2100 AC 07/06 SC 2010 Metoprolol Tartrate 25 MG BID 07/06 2100 07/07 PO 0814 Metoprolol Tartrate 12.5 MG BID 07/05 2100 TN 07/06 PO 0848 Multivitamins 1 TAB DAILY 07/06 1325 AC 07/07 PO 0814 Omeprazole 40 MG DAILY AC 07/06 1600 AC 07/07 PO 0501 Patient Medication 1 ED ONE ONE 07/07 0930 TN Teaching ED 07/07 09 Tamsulosin HCl 0.4 MG DAILY 07/05 0900 07/07 PO 0814 Results Last 48 Hrs of Labs/Mics: Laboratory Tests 07/07/18 0855: Sodium Pending, Potassium Pending, Chloride Pending, Carbon Dioxide Pending, Anion Gap Pending, BUN Pending, Creatinine Pending, BUN/Creatinine Ratio Pending , APTT 74 H, CBC w Diff NO MAN DIFF REQ, RBC 4.05 L, MCV 82.7, MCH 28.0, MCHC 33.8, RDW 16.1 H, MPV 9.6, Gran % 79.0 H, Lymphocytes % 8.5 L, Monocytes % 6.7, Eosinophils % 5.1 H, Basophils % 0.7, Absolute Granulocytes 8.3 H, Absolute Lymphocytes 0.9 L, Absolute Monocytes 0.7 H, Absolute Eosinophils 0.5 , Absolute Basophils 0.1 07/07/18 0010: APTT 48 H 07/06/18 1100: Troponin I 9.23 *H, APTT 62 H 07/06/18 0632: Anion Gap 8, Estimated GFR 54 L, BUN/Creatinine Ratio 24.6, CBC w Diff NO MAN DIFF REQ, RBC 3.87 L, MCV 82.1, MCH 28.3, MCHC 34.5, RDW 15.8 H, MPV 10.2, Gran % 84.0 H, Lymphocytes % 6.5 L, Monocytes % 6.1, Eosinophils % 3.2, Basophils % 0.2, Absolute Granulocytes 11.5 H, Absolute Lymphocytes 0.9 L, Absolute Monocytes 0.8 H, Absolute Eosinophils 0.4, Absolute Basophils 0 07/06/18 0445: Creatine Kinase 471 H, Troponin I 10.70 *H 07/06/18 0220: APTT 34 07/05/18 2230: Troponin I 8.95 *H 07/05/18 1451: Troponin I 6.02 *H Assessment/Plan Assessment/Plan Assessment: 1. Type 2 diabetes mellitus 2. Urinary tract infection 3. Severe aortic stenosis 4. Elevated troponin elevation with no chest pain. Likely type to versus type 1 myocardial infarction. recommendations: * I reviewed the echocardiogram result with the patient, which shows severe aortic stenosis. The current decompensation may represent symptomatic aortic stenosis, and aortic valve replacement either surgical or transcatheter is a consideration. I discussed this with the patient and he states that he is not interested in any surgery or invasive procedures * the patient is willing to take medications in the hospital, however he declines any outpatient medications. He states that he plans to discontinue all medications on discharge. * The patient declines cardiac catheterization. his noncompliance and intention to avoid taking medications after discharge would preclude stent placement given the need for dual anti-platelet therapy after stent placement. * Given the lack of definite cardiac symptoms, the patient's preference, and the patient's stated plan to discontinue all medications on discharge we will continue conservative management for the positive troponin. * Continue aspirin, Plavix, heparin * Increase metoprolol to 25 milligrams p.o. b.i.d. * I clarified with the patient, that, in view of his significant underlying cardiac issues, he would need further cardiac evaluation and probable intervention prior to any proposed urologic interventions. This will need to be discussed further with Dr. Ye and Dr. Floyd at the appropriate time. Continue telemetry? Yes
[2018-07-07 14:38] VITALS: BP 130/68
[2018-07-07] MEDS ORDERED: SIMVASTATIN80 M1 PO (16:27)
[2018-07-07] MEDS ORDERED: PLAVIX75 M1 PO (16:27)
[2018-07-07] MEDS ORDERED: FINASTERIDE5 M1 PO (16:27)
[2018-07-07] MEDS ORDERED: METOPROLOL TART25 M1 PO (16:27)
[2018-07-07] MEDS ORDERED: VITAMIN B-121000 MC3 PO (16:27)
[2018-07-07 21:24] VITALS: BP 130/60
[2018-07-07 21:56] LABS: PTT 93 SEC (25-37)
[2018-07-08 05:01] LABS: ABSOLUTE BASOPHIL COUNT 0 /CUMM (0.0-0.2); ABSOLUTE EOSINOPHIL COUNT 0.6 /CUMM (0.0-0.7); ABSOLUTE GRANULOCYTE CT 6.8 /CUMM (1.4-6.5); ABSOLUTE MONOCYTE COUNT 0.5 /CUMM (0.10-0.60); BASOPHIL % 0.5 % (0.0-2.0); EOSINOPHIL % 6.2 % (0-5); GRANULOCYTE % 76.5 % (42.2-75.2); HEMATOCRIT 30.7 % (42-52); MEAN CORPUSCULAR HGB 28.5 PG (27.0-31.0); MEAN CORPUSCULAR HGB CONC 34.4 G/DL (33.0-37.0); MEAN PLATELET VOLUME 9.3 FL (7.4-10.4); PLATELET COUNT 209 /CUMM (130-400); RBC DISTRIBUTION WIDTH 15.8 % (11.5-14.5); WHITE BLOOD CELL COUNT 8.9 /CUMM (4.8-10.8)
[2018-07-08 05:06] LABS: PTT 95 SEC (25-37)
[2018-07-08 05:56] VITALS: BP 122/66
[2018-07-08 08:11] VITALS: BP 122/66
--- NOTE | 2018-07-08 08:28 | PN- Housestaff ---
See Addendum Subjective Follow-up For: Sepsis secondary to UTI Elevated Troponins YANET Subjective: Afebrile overnight. Patient is seen and examined in bed. Patient is working with PT this morning and is sitting up in his chair. Patient denied any chest pain or shortness of breath. Patient understands he will be able to get his medications for a short term period filled at the pharmacy here in the hospital. Patient otherwise has no new complaints. Review of Systems Constitutional: Reports: see HPI. Objective Last 24 Hrs of Vital Signs/I&O Vital Signs Date Time Temp Pulse Resp B/P B/P Pulse O2 O2 Flow FiO2 Mean Ox Delivery Rate 07/08 0811 70 122/66 07/08 0810 70 122/66 07/08 0556 98.6 66 20 122/66 98 Room Air 07/07 2124 98.1 76 20 130/60 94 Room Air 07/07 2117 Room Air 07/07 1934 74 142/80 07/07 1438 98.5 67 18 130/68 98 Room Air Intake & Output 07/08 1600 07/08 0800 07/08 0000 Intake Total 228.8 132 Output Total 450 200 Balance -221.2 -68 Intake, IV 228.8 132 Output, Urine 450 200 Patient 243 lb Weight Physical Exam General Appearance: Alert, Oriented X3, Cooperative, No Acute Distress Skin: No Rashes, No Breakdown HEENT: Atraumatic Neck: Supple, No JVD Cardiovascular: Regular Rate, Normal S1, Normal S2 Lungs: Clear to Auscultation Neurological: Normal Speech Extremities: Normal Pulses Assessment/Plan Assessment: Chest X-Ray - No acute cardiopulmonary findings Head CT - 1. No acute intracranial pathology. 2. No CT evidence of acute cervical spine fracture or traumatic subluxation 73 YO male with past medical history significant for type 2 diabetes mellitus, BPH, orthostatic hypotension, chronic back pain, was brought in via EMS to the emergency room with chief complaint of altered mental status. #Sepsis secondary to UTI Patient presented with lethargy, weakness. He was found to have T-max 103.8, tachycardia, leukocytosis and bandemia. Urinalysis showed nitrates, esterase, bacteria, WBC. He will be admitted to [facility] for sepsis secondary to UTI versus hyperthermia. -Monitor vitals every shift -Maintain oxygen saturations greater than 90 -Monitor for fever, leukocytosis -Continue IV ceftriaxone, change to Augmentin as outpatient to complete antibiotic course -Finasteride 5 mg and Tamsulosin .4 mg #Elevated Troponins with T-wave flattening on EKG -Cardiology consulted; patient has changed his mind several times on whether to proceed with cardiac cath or not; patient told likely he will need to take medication and be compliant with the procedure to proceed further but patient declined any further intervention at the present moment due to insurance issues and inability to comply with medical recommendations; patient further declined any social work or psychiatric evaluation -ECHO; finding shows severe aortic stenosis -f/u Trops/EKG -Metoprolol 25 mg BID #Acute kidney injury Creatinine 1.6 at the time of admission. His baseline creatinine was 0.8 most likely secondary to dehydration and hyperthermia -Adequate hydration -Recheck creatinine in the a.m. -Avoid nephrotoxic agents #Diabetes mellitus Patient has chronic history of type 2 diabetes mellitus. He is supposed to take Levemir and oral hypoglycemic agents. However he stopped taking all his medications. He stopped following up Dr. Anand. -Accu-Cheks -Levemir 14 units at bedtime -NovoLog sliding scale #Mild elevation of creatinine kinase -Provide gentle hydration #Generalized weakness -PT consult -Follow-up thyroid function tests -Follow-up vitamin D -Follow-up B12 and folate -Follow-up iron studies DVT prophylaxis Regular diet DNR/DNI Problem List: 1. Sepsis 2. UTI (urinary tract infection) 3. Acute renal failure 4. Elevated troponin Pain Ratin Pain Location: na Pain Goal: Remain pain free Pain Plan: na Tomorrow's Labs & Rationales: routine
[2018-07-08] MEDS ORDERED: AUGMENTIN 500-1 EACH PO ×2 (10:18→11:00)
[2018-07-08] MEDS ORDERED: FLOMAX0.4 M1 PO (10:57)
[2018-07-08] MEDS ORDERED: ASPIRIN81 M4 PO (10:58)
[2018-07-08] MEDS ORDERED: VITAMIN D250000 UNIT PO (10:58)
[2018-07-08] MEDS ORDERED: OMEPRAZOLE40 M1 PO (10:58)
[2018-07-08] MEDS ORDERED: PLAVIX75 M1 PO (11:00)
[2018-07-08] MEDS ORDERED: FINASTERIDE5 M1 PO (11:00)
[2018-07-08] MEDS ORDERED: VITAMIN B-121000 MC3 PO (11:00)
[2018-07-08] MEDS ORDERED: SIMVASTATIN80 M1 PO (11:00)
[2018-07-08] MEDS ORDERED: METOPROLOL TART25 M1 PO (11:00)
--- NOTE | 2018-07-08 11:52 | PN- Cardiology ---
Subjective Subjective: No new cardiac issues overnight. Rhythm stable on upper marker. Objective Vital Signs and I&Os Vital Signs Date Time Temp Pulse Resp B/P B/P Pulse O2 O2 Flow FiO2 Mean Ox Delivery Rate 07/08 08 70 122/66 07/08 0810 70 122/66 07/08 0556 98.6 66 20 122/66 98 Room Air 07/07 2124 98.1 76 20 130/60 94 Room Air 07/07 2117 Room Air 07/07 1934 74 142/80 07/07 1438 98.5 67 18 130/68 98 Room Air Intake & Output 07/08 1600 07/08 0807/08 0000 07/07 1600 07/07 0000 Intake Total 228.8 132 720 704 Output Total 450 200 800 525 400 Balance -221.2 -68 -80 179 -400 Intake, IV 228.8 132 264 Intake, Oral 720 440 Output, Urine 450 200 800 525 400 Patient 243 lb 243 lb Weight Physical Exam: Gen: The patient is in no acute distress HEENT: Normal nose, ears, and oropharynx. Pupils equal bilaterally. Conjunctiva normal. Neck: Supple with no JVD, no masses, and no thyromegaly Lungs: Clear to auscultation with normal respiratory effort Heart: RRR, S1, S2, 2/6 systolic murmur. 1+ peripheral edema, 1+ pulses in the lower extremities bilaterally Abdomen: Soft, nontender, no masses. No hepatomegaly. No splenomegaly Extremities: No clubbing or cyanosis. Normal muscle strength in the upper and lower extremities Skin: Normal skin turgor with no skin ulcers or lesions noted. Neuro: Cranial nerves intact. Sensation intact Current Medications: Current Medications Sig/[place] Start time Last Medication Dose Route Stop Time Status Admin Acetaminophen 650 MG Q6P PRN 07/05 0200 AC PO Acetaminophen 1,000 MG Q6P PRN 07/05 0200 AC IV Aspirin Buffered 81 MG DAILY 07/05 900 AC 07/08 PO 0810 Atorvastatin Calcium 40 MG 1700 07/05 1700 AC 07/07 PO 1617 Ceftriaxone Sodium 1,000 MG Q24H 07/06 0100 AC 07/08 IV 0042 Cholecalciferol 6,000 IU DAILY 07/05 900 AC 07/08 PO 08 Clopidogrel Bisulfate 75 MG DAILY 07/06 900 AC 07/08 PO 0811 Cyanocobalamin 250 MCG DAILY 07/06 1325 AC 07/08 PO 0811 Ergocalciferol 50,000 IU ONCE A WEEK 07/05 1600 AC 07/05 PO 1804 Finasteride 5 MG DAILY 07/07 0900 AC 07/08 PO 0811 Heparin Sodium 25,000 UNIT Q24H 07/05 1845 AC 07/08 (Porcine) IV 0254 Sodium Chloride 500 ML Insulin Aspart 0 TIDAC 07/05 0200 AC 07/07 [place] 1617 Insulin Detemir 14 UNITS AT BEDTIME 07/05 2100 AC 07/07 [place] 1934 Metoprolol Tartrate 25 MG BID 07/06 2100 AC 07/08 PO 0811 Multivitamins 1 TAB DAILY 07/06 1325 AC 07/08 PO 0811 Omeprazole 40 MG DAILY AC 07/06 1600 AC 07/08 PO 0614 Potassium Chloride 40 MEQ ONCE ONE 07/08 0915 DC 07/08 PO 07/08 0916 1032 Tamsulosin HCl 0.4 MG DAILY 07/05 09 AC 07/08 PO 0810 Results Last 48 Hrs of Labs/Mics: Laboratory Tests 07/08/18 0435: Anion Gap 7, Estimated GFR 50 L, BUN/Creatinine Ratio 17.9, APTT 95 H, CBC w Diff NO MAN DIFF REQ, RBC 3.70 L, MCV 83.0, MCH 28.5, MCHC 34.4, RDW 15.8 H, MPV 9.3, Gran % 76.5 H, Lymphocytes % 10.7 L, Monocytes % 6.1, Eosinophils % 6.2 H, Basophils % 0.5, Absolute Granulocytes 6.8 H, Absolute Lymphocytes 1.0 L, Absolute Monocytes 0.5, Absolute Eosinophils 0.6, Absolute Basophils 0 07/07/182054: APTT 93 H 07/07/18 0855: Anion Gap 7, Estimated GFR 54 L, BUN/Creatinine Ratio 19.2, APTT 74 H, CBC w Diff NO MAN DIFF REQ, RBC 4.05 L, MCV 82.7, MCH 28.0, MCHC 33.8, RDW 16.1 H, MPV 9.6, Gran % 79.0 H, Lymphocytes % 8.5 L, Monocytes % 6.7, Eosinophils % 5.1 H, Basophils % 0.7, Absolute Granulocytes 8.3 H, Absolute Lymphocytes 0.9 L, Absolute Monocytes 0.7 H, Absolute Eosinophils 0.5, Absolute Basophils 0.1 07/07/18 0010: APTT 48 H Assessment/Plan Assessment/Plan Assessment: 1. Type 2 diabetes mellitus 2. Urinary tract infection 3. Severe aortic stenosis 4. Elevated troponin elevation with no chest pain. Likely type to versus type 1 myocardial infarction. recommendations: * Dr. Ye reviewed the echocardiogram result with the patient, which shows severe aortic stenosis. The current decompensation may represent symptomatic aortic stenosis, and aortic valve replacement either surgical or transcatheter is a consideration. I discussed this with the patient and he states that he is not interested in any surgery or invasive procedures * the patient is willing to take medications in the hospital, however he declines any outpatient medications. He states that he plans to discontinue all medications on discharge. * The patient declines cardiac catheterization. his noncompliance and intention to avoid taking medications after discharge would preclude stent placement given the need for dual anti-platelet therapy after stent placement. * Given the lack of definite cardiac symptoms, the patient's preference, and the patient's stated plan to discontinue all medications on discharge we will continue conservative management for the positive troponin. * Continue aspirin, Plavix, heparin * Increase metoprolol to 25 milligrams p.o. b.i.d. * I clarified with the patient, that, in view of his significant underlying cardiac issues, he would need further cardiac evaluation and probable intervention prior to any proposed urologic interventions. This will need to be discussed further with Dr. Ye and Dr. Floyd at the appropriate time. Discharge planning as per the medical team. The patient knows that outpatient follow-up with Dr. Ye is recommended. Continue telemetry? Yes
== END 2018-07-08 12:31 | DRG 871 ==
LOC: ERH 21:22 → 1NO 07-05 01:03 → ERHI 07-05 01:03 → EDBEDREQ 07-05 16:28 → EDBEDREQTM 07-05 16:28 → ENRESERV 07-05 16:40 → ENTRNSPT 07-05 16:42 → 1NO 07-05 17:13 → EDTRNSPTSTS 07-05 17:21 → EDTRNSPT 07-05 17:21 → CMPTRNSPT 07-05 17:43 → 1NO 07-06 08:27 → ENPENDDIS 07-08 11:01 → ENTRNSPT 07-08 11:57 → EDTRNSPTSTS 07-08 12:28 → 1NO 07-08 12:31 → CMPTRNSPT 07-08 12:46
PROVIDERS: Emergency Medicine; Hospitalist; Internal Medicine; Student in an Organized Health Care Education/Training Program
DX: A41.9 Sepsis, unspecified organism (principal); I21.A1 Myocardial infarction type 2; N39.0 Urinary tract infection, site not specified; N17.9 Acute kidney failure, unspecified; E11.9 Type 2 diabetes mellitus without complications; Z79.4 Long term (current) use of insulin; Z79.84 Long term (current) use of oral hypoglycemic drugs; N40.0 Benign prostatic hyperplasia without lower urinary tract symptoms; T38.3X6A Underdosing of insulin and oral hypoglycemic [antidiabetic] drugs, initial encounter; E86.0 Dehydration; I95.1 Orthostatic hypotension; I35.0 Nonrheumatic aortic (valve) stenosis; I10 Essential (primary) hypertension; B95.7 Other staphylococcus as the cause of diseases classified elsewhere
CPT/HCPCS: 1NP; 36592; 71045; 76775; 81001; 82436; 87040; 87086; 87147; 93005; 93010; 93306; 96361; 96372; 96374; 97110-GO; 97116-GO; 97161-GP; 97530-GO; J0131; J0696; J1644